=== PATIENT | female | born 1955 | race Caucasian/White ===

== ENCOUNTER → 2019-05-25 12:41 | Outpatient (CLI) | payer OTHER, SELFPAY ==
--- NOTE | 2019-05-25 12:46 | STEWCON_ITS ---
Reason For Study: CHEST PAIN Stress Results Protocol: Kenneth Protocol WITH DEFINITY Maximum Predicted HR: 158 bpm Target HR: 134 bpm % Maximum Predicted HR: 89 % DurationHeart Rate Stage (mm:ss) (bpm) BP Comment BASELINE 78 148/886 CC DEFINITY STAGE 1 3:00 127 200/88 STAGE 2 1:31 141 / RECOVERY 100 150/70 Stress Duration: 4:31 mm:ss Maximum Stress HR: 141 bpm Baseline Echocardiogram Findings Stress Echo Wall motion Data Resting WM Intermediate WM Stress WM Interpretation Summary Exercise stress echo. 63-year-old lady with a history of hypertension and chest discomfort. Stress protocol: Resting EKG demonstrates normal sinus rhythm with a rate of 82 bpm normal intervals are noted resting blood pressures 148/88 mmHg. The patient exercised according to regular Kenneth protocol for a total duration of 4 minutes and 30 seconds. The maximum heart rate attained was 141 bpm which was 89% of maximum predicted heart rate the maximum workload was 7 metabolic equivalents. The patient maintained sinus rhythm throughout the recording. At rest no EKG changes were noted suggest ischemia at peak exercise upsloping ST changes only were noted with no meet the criteria for ischemia. No clinical angina was noted the test was terminated due to dyspnea and target heart rate being achieved. Stress echocardiographic protocol. Resting echocardiographic images were obtained with Definity enhancement. The baseline ejection fraction was noted to be approximately 60%. No wall motion abnormalities were noted. During exercise there was thickening of the basal anterior wall, basal inferior wall and no thickening noted of the mid to distal anterior wall, the apex was noted to be akinetic and the inferoapical wall was hypokinetic. This appeared to improve after discontinuation of the exercise. The above is suggestive of stress-induced ischemia involving a moderate area in the mid to distal anterior wall and apex and inferoapical wall. Conclusion: Abnormal exercise stress echo with evidence of anterior, anterior apical and inferoapical ischemia. Normal resting baseline echo Ordering Physician: Jaxon Rojo Referring Physician: Jaxon Rojo Performed By: Tamiko Ariza, LORRAINE, RVT
== END ==
PROVIDERS: Family Provider Family Medicine; PCP Family Medicine; Referring Provider Family Medicine; Visit Provider Family Medicine
DX: R07.9 Chest pain, unspecified (principal)
CPT/HCPCS: 93017; 93350; Q9957; A4216; C8928

== ENCOUNTER 2019-06-04 06:55 | Day surgery (SDC) | payer OTHER, SELFPAY ==
[2019-05-30 12:19] VITALS: BMI 38.7
--- NOTE | 2019-05-30 15:11 | RAD_ITS ---
STUDY: X-RAY CHEST REASON FOR EXAM: Female, 63 years old. pre heart cath TECHNIQUE: 2 views COMPARISON: Prior chest radiograph of December 20, 2014 FINDINGS: The lungs are clear and expanded. There is no demonstrated pleural abnormality. Normal size heart. Normal mediastinum and alie. Normal visualized pulmonary arteries. Mild elongation of the thoracic aorta. There are diffuse degenerative changes of the visualized thoracic spine with increased kyphosis. Normal visualized ribs, clavicles, and shoulders. There is no demonstrated abnormality of the visualized soft tissue structures of the upper abdomen. RAD/Chest PA and Lateral IMPRESSION: No acute cardiopulmonary findings or changes. Negative for new consolidation, focal atelectasis or pleural effusion. Normal cardiac size. Mild elongation of the thoracic aorta. Electronically Signed: Maxine Dickey MD at 23:32 EST , Service support ,
[2019-05-31 09:28] LABS: Basophil% 1.2 % (0-1); Eosinophils% 1.9 % (0-5); Hematocrit 49.8 % (37-47); Hemoglobin 16.4 g/dL (12.0-15.0); Lymphocyte % 28.7 % (19-41); Mean Corp Hgb Conc 32.9 g/dL (32-36); Mean Corpuscular Hgb 29.9 pg (27.0-32.0); Mean Corpuscular Volume 90.7 fL (81-99); Mean Platelet Vol. 10.7 fl (6.2-12.0); Monocyte% 7.9 % (0-10); Neutrophil # 5.43 X10^3/uL (2.7-7.7); Neutrophil % 59.9 % (47-70); Platelet Count 281 K/mm3 (150-450); RBC Distribution Width CV 13.3 % (11.6-14.6); RBC Distribution Width SD 45.1 fl (35.1-43.9); Red Blood Count 5.49 M/mm3 (4.2-5.4); White Blood Count 9.1 K/mm3 (4.4-11.0)
[2019-05-31 09:29] LABS: Absolute Neutrophil Count 5.4 X10^3/uL (2.0-7.7); Basophil# 0.11 X10^3/uL; Eosinophil# 0.17 X10^3/uL; Glucose 93 mg/dL (74-106); Monocyte# 0.72 X10^3/uL; NRBC Flagged by Analyzer 0 % (0-5)
[2019-05-31 09:30] LABS: Anion Gap 6 (5-15); BUN 32 mg/dL (7-18); BUN/Creat Ratio 24.1 RATIO (10-20); Calcium,Total 9.9 mg/dL (8.5-10.1); Chloride 106 mmol/L (98-107); Creatinine, Serum 1.33 mg/dL (0.55-1.02); EST Glomerular Filtration Rate 43 mL/min (>60); Est Glom Filt Rate - Afr Amer 52 mL/min (>60); Potassium 4.1 mmol/L (3.5-5.1); Sodium Level 138 mmol/L (136-145)
[2019-06-01 07:38] VITALS: BMI 38.7
--- NOTE | 2019-06-04 09:41 | CL.D_ITS ---
Patient Name: MARIBELL LEE Study Date: 06/04/2019 Performing: Azar Albright MD Ht: 63.38 inches 161 cm : 1955 Wt: 222.67 lbs 101 kg Age: 63 Gender: female BSA: 2.03 PROCEDURE(S) PERFORMED [id number] CLINICAL PROFILE AND INDICATIONS Indications: Worsening Angina Heart Failure: None Stress/Imaging Stress Echocardiogram: Yes Result: Positive High RiskStress Echocardiogram: Positi ve High Risk CAD Presentations: Unstable angina. CONCLUSIONS Severe coronary artery disease involving ostial left main and proximal LAD stenosis with ventriculari zation of pressures on engagement, minimal left circumflex artery disease, moderately severe right co ronary artery stenosis with proximal 70 to 80% stenosis and preserved ejection fraction RECOMMENDATIONS Surgery consult for coronary revascularization DESCRIPTION OF PROCEDURE The patient arrived to the procedure lab. The risks and benefits of the procedure as well as a full d escription of our services here and current unavailability of surgical backup were fully explained to the patient and/or their significant other prior to the catheterization. The Timeout was completed, verifying the correct patient and procedure. The patient's procedural site was prepped and draped in the usual fashion. Local anesthetic was given subcutaneously to right radial region with Lidocaine 2% . Using a modified Seldinger technique, arterial access was obtained via the right radial artery, a 6 Fr sheath was inserted. Right Coronary Artery selective angiography was then performed in multiple v iews using a 5 Fr. 4.0 Cascilla catheter. Left Coronary Artery selective angiography was performed in mu ltiple views using a 5 Fr. JL3.5 catheter. Left Ventriculography was performed in ALANIZ projection usin g a 5 Fr. Pigtail catheter. LV to AO pullback pressures were then recorded.The arterial sheath was pulled and a TR Band was applied for hemostasis, 10cc of air CORONARY ANGIOGRAPHY DOMINANCE: Right Dominant LEFT HEART ASSESSMENT Left Ventricular Ejection Fraction: by LV Gram 60 % Normal LV wall motion Normal Left Ventricular systolic function LEFT MAIN: Ostial 90 % Stenosis LEFT ANTERIOR DESCENDING ARTERY: OSTIAL LAD: 90 % Stenosis CIRCUMFLEX ARTERY: No significant disease noted RIGHT CORONARY ARTERY: PROX RCA: Diffusely diseased up to 80 % COMPLICATIONS No Complications PROCEDURE MEDICATIONS Fentanyl 50 mcg IV Versed 1 mg IV Versed 1 mg IV Versed 1 mg IV Oxygen: 2 L/min via nasal cannula Heparin diluted in 23cc Heparinized saline. Patient given 10cc IA of this solution. 06/04/2019 09:10:1 5 Verapamil 2.5mg, Ntg 100mcgs, 2000 units of Heparin diluted in 23cc Heparinized saline. Patient give n 10cc IA of this solution. 06/04/2019 09:10:15 SUMMARY OF HEMODYNAMIC DATA Time AIR REST ECG 07:24:26 AO 120/70 (89) SA 09:10:08 LV 108/8, 11 09:20:39 LV 130/9, 16 09:20:45 LV 112/11, 24 09:21:25 LVp 120/22, 40 09:21:34 AOp 118/64 (87) 09:21:39 Signed By Azar Albright MD On 06/04/2019 09:40:57 Azar Albright MD
== END 2019-06-04 12:21 | disposition short-term general hospital (02) ==
LOC: CLSP 06:56
PROVIDERS: PCP Family Medicine; Referring Provider Internal Medicine Cardiovascular Disease; Visit Provider Internal Medicine Cardiovascular Disease
DX: I25.10 Atherosclerotic heart disease of native coronary artery without angina pectoris (principal); I65.23 Occlusion and stenosis of bilateral carotid arteries; R07.89 Other chest pain; I10 Essential (primary) hypertension; E78.5 Hyperlipidemia, unspecified; J44.9 Chronic obstructive pulmonary disease, unspecified; Z86.718 Personal history of other venous thrombosis and embolism; F17.200 Nicotine dependence, unspecified, uncomplicated
CPT/HCPCS: 36415; 71046; 80048; 85025; 93458; 99152; 99153; Q9967; C1769; C1894

== ENCOUNTER 2019-06-15 19:20 | Inpatient (IN) | payer OTHER, SELFPAY ==
[2019-06-01 07:38] VITALS: BMI 38.7
[2019-06-15 19:24] VITALS: BMI 39.0
[2019-06-15 20:27] VITALS: BMI 39.0
--- NOTE | 2019-06-15 22:28 | EKG12_ITS ---
Test Reason : CABG Blood Pressure : / mmHG Vent. Rate : 076 BPM Atrial Rate : 076 BPM P-R Int : 134 ms QRS Dur : 094 ms QT Int : 374 ms P-R-T Axes : 054 028 146 degrees QTc Int : 420 ms Normal sinus rhythm Nonspecific ST and T wave abnormality Abnormal ECG When compared with ECG of 24-JAN-2014 10:54, Nonspecific T wave abnormality, worse in Inferior leads T wave inversion now evident in Lateral leads Confirmed by MAGO POWER ([id number]), magazine editor OLGA NEWMAN ([id number]) on 06/21/2019 10:00:04 AM Referred By: MAXIMILIANO Confirmed By:MAGO POWER
[2019-06-15 22:49] VITALS: BP 164/77; PULSE 76; RESP 18; TEMP 36.7; O2SAT 92
[2019-06-15] MEDS: traZODone 100 MG Tablet PO (23:04)
[2019-06-15] MEDS: Senna/Docusate Sodium 1 Tablet PO (23:05)
[2019-06-15] MEDS: traMADol 50 MG Tablet PO (23:05)
[2019-06-15] MEDS: Acetaminophen 500 MG Tablet 1000 MG PO (23:05)
[2019-06-15] MEDS: Atorvastatin Calcium 40 MG Tablet PO (23:06)
[2019-06-16] VITALS (7 sets, daily range): BP systolic 146–152; BP diastolic 75–76; PULSE 74–80; RESP 18–20; TEMP 36.6–37.1; O2SAT 94–95
[2019-06-16] MEDS: Acetaminophen 500 MG Tablet 1000 MG PO ×3 (05:54→17:11)
[2019-06-16] MEDS: Ipratropium/Albuterol Sulfate 3 ML AMPUL.NEB INHALATION ×3 (06:45→20:08)
[2019-06-16] MEDS: Furosemide 20 MG Tablet PO (07:43)
[2019-06-16] MEDS: traMADol 50 MG Tablet PO ×3 (07:43→22:14)
[2019-06-16] MEDS: Lidocaine 5% Patch 1 PATCH TOPICAL (07:43)
[2019-06-16] MEDS: Senna/Docusate Sodium 1 Tablet PO ×2 (07:44→21:16)
[2019-06-16] MEDS: Magnesium Oxide 400 MG Tablet PO (07:44)
[2019-06-16] MEDS: Escitalopram Oxalate 10 MG Tablet PO (07:44)
[2019-06-16] MEDS: Clopidogrel Bisulfate 75 MG Tablet PO (07:44)
[2019-06-16] MEDS: Amiodarone 200 MG Tablet 400 MG PO (07:44)
[2019-06-16] MEDS: Pantoprazole Sodium 40 MG Tablet PO (07:44)
[2019-06-16] MEDS: Aspirin 81 MG TAB.CHEW PO (07:44)
[2019-06-16 08:02] LABS: Absolute Lymphocyte Count 1.98 X10^3/uL (0.83-4.51); Absolute Neutrophil Count 6.4 X10^3/uL (2.0-7.7); Basophil# 0.08 X10^3/uL; Basophil% 0.8 % (0-1); Eosinophil# 0.69 X10^3/uL; Eosinophils% 6.9 % (0-5); Hematocrit 33.3 % (37-47); Hemoglobin 10.4 g/dL (12.0-15.0); Lymphocyte # 1.98 X10^3/ul (4.0); Lymphocyte % 19.7 % (19-41); Mean Corp Hgb Conc 31.2 g/dL (32-36); Mean Corpuscular Hgb 29.7 pg (27.0-32.0); Mean Corpuscular Volume 95.1 fL (81-99); Monocyte# 0.87 X10^3/uL; Monocyte% 8.7 % (0-10); NRBC Flagged by Analyzer 0 % (0-5); Neutrophil # 6.35 X10^3/uL (2.7-7.7); Neutrophil % 63.3 % (47-70); Platelet Count 371 K/mm3 (150-450); RBC Distribution Width SD 48.1 fl (35.1-43.9)
[2019-06-16 08:27] LABS: ALB/GLOB Ratio 0.6 RATIO (0.9-2.4); AST(SGOT) 19 U/L (15-37); Alanine Aminotransfer ALT/SGPT 24 U/L (13-56); Albumin, Serum 2.7 g/dL (3.2-5.0); Alkaline Phosphatase 67 U/L (45-117); Anion Gap 5 (5-15); BUN 16 mg/dL (7-18); BUN/Creat Ratio 15.2 RATIO (10-20); Calcium,Total 9.4 mg/dL (8.5-10.1); Chloride 104 mmol/L (98-107); Creatinine, Serum 1.05 mg/dL (0.55-1.02); EST Glomerular Filtration Rate 56 mL/min (>60); Est Glom Filt Rate - Afr Amer 68 mL/min (>60); Estimated Creatinine Clearance 45.95 ml/min; Globulin 4.4 g/dL (2.2-4.2); Glucose 95 mg/dL (74-106); Magnesium 2.2 mg/dL (1.6-2.6); Potassium 4.2 mmol/L (3.5-5.1); Protein, Total 7.1 g/dL (6.4-8.2); Sodium Level 138 mmol/L (136-145)
[2019-06-16] MEDS: Metoprolol Tartrate 50 MG Tablet PO (09:31)
--- NOTE | 2019-06-16 14:12 | PCM.HP.STD ---
Problem List (1) S/P CABG (coronary artery bypass graft) Status: Acute Comment: 06/08/[address] Riley ar [facility]. MARTINEZ -LAD and SVG-RCA (2) History of left-sided carotid endarterectomy Status: Chronic Comment: 2013 (3) Obesity (BMI 30-39.9) Status: Chronic (4) Chest pain Status: Acute Qualifiers: Chest pain type: precordial pain Qualified Code(s): R07.2 - Precordial pain Comment: with coughing (5) Atherosclerosis of coronary artery of knik heart without angina pectoris Status: Chronic Qualifiers: Coronary Disease-Associated Artery/Lesion type: knik artery Qualified Code(s): I25.10 - Atherosclerotic heart disease of knik coronary artery without angina pectoris (6) Bilateral carotid artery stenosis Status: Chronic Comment: Left CEA 08/27/2013 (7) Essential (primary) hypertension Status: Chronic (8) Hyperlipidemia Status: Chronic (9) Nicotine dependence Status: Chronic Qualifiers: Nicotine product type: cigarettes Comment: 1 or > daily for 40-45 years (10) BPPV (benign paroxysmal positional vertigo) Status: Chronic (11) Diverticulosis Status: Chronic (12) Migraine headache with aura Status: Chronic (13) History of meningioma Status: Resolved Comment: resected in 2000 (14) DVT (deep venous thrombosis) Status: Resolved Qualifiers: DVT location: lower extremity Comment: 2012 (15) CVA (cerebral vascular accident) Status: Acute Qualifiers: CVA mechanism: embolism Comment: BL thalami and left temporal-occipital with small hemorhagic transformation L thamlamus - jo-ann-operative following CABG. Cardioembolic (16) Cardiac arrest with ventricular fibrillation Status: Acute Comment: X3 immediately after CABG with defibrillation X 2 (17) Ventricular tachycardia (paroxysmal) Status: Acute (18) COPD (chronic obstructive pulmonary disease) Status: Chronic (19) Anxiety and depression Status: Acute History of Present Illness Date of Admission: 06/15/19 The patient is a 63 year old F with a past medical history of hypertension, hyperlipidemia, COPD, CAD with two-vessel CABG on 06/08/2019, carotid stenosis bilaterally with left carotid endarterectomy in 2013, obesity, anxiety/depression, benign paroxysmal positional vertigo, diverticulosis, migraine headaches, meningioma with resection in 2000, DVT in 2012, ventricular tachycardia, V. fib arrest x3 postoperatively with defibrillation x2 and post-operative CVAs (bilateral thalamus and left temporal/occipital with small hemorrhagic transformation in the left thalamus thought to be cardioembolic who is admitted to the inpatient rehab unit on for debility due to recent CVS's for > 3 hours of therapy daily to restore function at or near her prior level of independence. Prior to recent surgery she was managing her ADL's independently and was driving. She currently denies Chest pain other than the anterior chest stabbing she has when coughing or moving. She denies SOB and she denies palpitations. She has no cephalgia. All paperwork we received from [facility] was reviewed. Past Medical History Past Medical History (Chronic Problems): Chronic Problems (Last Updated 06/04/19 @ 11:15 by Kate Interiano) History of left-sided carotid endarterectomy (Chronic) 2013 Obesity (BMI 30-39.9) (Chronic) BPPV (benign paroxysmal positional vertigo) (Chronic) Diverticulosis (Chronic) Migraine headache with aura (Chronic) COPD (chronic obstructive pulmonary disease) (Chronic) Atherosclerosis of coronary artery of knik heart without angina pectoris (Chronic) Bilateral carotid artery stenosis (Chronic) Left CEA 08/27/2013 Essential (primary) hypertension (Chronic) Hyperlipidemia (Chronic) Nicotine dependence (Chronic) 1 or > daily for 40-45 years Medical History: Medical History (Last Reviewed 06/17/19 @ 13:22 by Irene Ferraro DO) Atherosclerosis of coronary artery of knik heart without angina pectoris (Chronic) I25.10 Bilateral carotid artery stenosis (Chronic) I65.23 Left CEA 08/27/2013 Essential (primary) hypertension (Chronic) I10 Hyperlipidemia (Chronic) E78.5 Nicotine dependence (Chronic) F17.200 1 or > daily for 40-45 years BPPV (benign paroxysmal positional vertigo) H81.10 COPD (chronic obstructive pulmonary disease) J44.9 History of DVT (deep vein thrombosis) Onset Date: 01/2013 Z86.718 LLE Obesity E66.9 Meningioma determined by biopsy of brain D32.0 Allergies No Known Allergies Allergy (Verified 05/30/19 12:19) Home Medications: Ambulatory Orders Medication Instructions Recorded Aspirin E.C. [Ecotrin] 81 mg PO DAILY@0800 08/09/13 Escitalopram Oxalate [Lexapro] 10 mg PO DAILY 08/09/13 Omeprazole [Prilosec] 20 mg PO DAILY PRN PRN 08/09/13 Simvastatin [Zocor] 40 mg PO DAILY 08/09/13 traZODone [Desyrel] 100 mg PO QHS PRN PRN 08/09/13 lisinopril 20 1 tab PO DAILY tab 05/29/19 mg-hydrochlorothiazide 25 mg tablet metoprolol succinate 50 mg 50 mg PO DAILY #90 tab 05/30/19 tablet,extended release 24 hr Surgical History: Surgical History (Last Reviewed 06/17/19 @ 13:23 by Irene Ferraro DO) History of bone graft Z98.890 to left foot History of cholecystectomy Z90.49 History of laminectomy Z98.890 History of left heart catheterization Onset Date: 06/04/19 Z98.89 History of left-sided carotid endarterectomy Onset Date: 08/27/13 Z98.89 Left carotid endarterectomy with bovine patch angioplasty. History of repair of rotator cuff Z98.890 History of resection of meningioma Onset Date: 2000 Z Psychiatric History: Anxiety, Depression [employer] History: No pertinent [employer] history Lives: With Family - her dtr Ba Smoking Status: Current every day smoker - Has not smoked in 2 weeks since being transferred to [facility]. Has been smoking for 40-45 years and up until the surgery was smoking greater than or equal to 1 pack/day Tobacco Use: Cigarettes Alcohol: Occasional Drugs: None - *Family History Maternal Family History: Family History (Last Reviewed 06/17/19 @ 13:23 by Irene Ferraro DO) Mother Clotting disorder CAD (coronary artery disease) Hypertension Pulmonary embolism Father Hypertension Diabetes History Items: Clotting Disorder Review of Systems Constitutional: Reports: Weakness. Denies: Anorexia, Chills, Fever, Weight Change Eyes: Reports: Vision Change - visual changes with funny vision with vertical gaze after the CVA's. Denies: Blurred vision HEENT: Denies: Head Aches, Sinus Congestion, Sinus Drainage, Sore Throat Cardiovascular: Reports: Chest Pain - this is stabbing pain and she gets this with coughing and with twisting/rolling over in bed. Denies: Light Headedness, Palpitations, Syncope Respiratory: Reports: Cough, Shortness of breath upon exertion, Sputum production - white/clear. Denies: Hemoptysis, Shortness of breath at rest Gastrointestinal: Denies: Abdominal Pain, Constipation, Diarrhea, Dyspepsia, Nausea, Vomiting Genitourinary: Denies: Dysuria Musculoskeletal: Reports: Shoulder Pain - she has left shoulder pain from an old rotator cuff injury. Denies: Joint Pain, Joint Tenderness Skin: Denies: Jaundice, Rash, Wounds Neurological: Reports: Balance problems - she walks to the left. Denies: Double vision, Slurred speech, Confusion, Focal weakness, Numbness, Tingling, Tremor, Seizures Psychiatric: Reports: Anxiety, Depression. Denies: Homicidal Ideations, Suicidal Ideations Endocrine: Denies: Change in Body Habitus Hematologic/ Lymphatic: Reports: Hx of blood clot - in 2013 - unprovoked. Denies: Easy Bruising, Easy Bleeding VTE Information - Inpt Only VTE Present on Admission: No VTE Mechan Device Prophylaxis: SCD's, Knee High AWA Hose VTE Pharm Prophylaxis ordered?: No Reason prophylaxis not ordered:: Treatment Not Indicated - pt had hemorrhagic transformation of recent CVA Patient Problems: Active and Suspected Problems (Last Updated 06/04/19 @ 11:15 by Kate Interiano) S/P CABG (coronary artery bypass graft) (Acute) 06/08/[address] X [address] Riley ar [facility]AG. MARTINEZ -LAD and SVG-RCA CVA (cerebral vascular accident) (Acute) BL thalami and left temporal-occipital with small hemorhagic transformation L thamlamus - jo-ann-operative following CABG. Cardioembolic Cardiac arrest with ventricular fibrillation (Acute) X3 immediately after CABG with defibrillation X 2 Ventricular tachycardia (paroxysmal) (Acute) Anxiety and depression (Acute) - Physical Exam Vitals/I&O's: Vital Signs Temp Pulse Resp BP Pulse Ox 97.9 F 80 18 152/75 H 94 06/16/19 07:39 06/16/19 12:59 06/16/19 12:59 06/16/19 09:31 06/16/19 07:39 Oxygen Delivery Method Room Air Weight: 220 lb 7.396 oz Body Mass Index (BMI) 39.0 Intake and Output for Last 24 Hours 06/14/19 06/15/19 06/16/19 23:59 23:59 23:59 Intake Total 600 / 600 Output Total 300 / 300 Balance 300 / 300 General: Alert, Oriented x3, Cooperative, No apparent distress, Well developed, Well nourished, - - lying in bed......grimaces with rolling on her side and with coughing. Looks older than her stated age HEENT: Atraumatic, PERRLA, EOMI, Normocephalic Oral: Moist Mucosa, No Gingival or Mucosal Lesions/ Ulcerations Neck: Supple, No JVD, Negative Carotid Bruits, No Nodes, Trachea Midline Lungs: Clear to auscultation, No rhonchi, No wheeze, No rales, Diminished - throughout Cardiovascular: Regular rate, Regular Rhythm, Normal S1, Normal S2, No murmurs, No Ectopic Activity, No rub noted, No Gallop Abdomen: Bowel Sounds Present, Soft, Non Tender, Non-Distended, Obese, - - No guarding with palpation Extremities: No clubbing, No cyanosis, No edema, Capillary Refill Less than 3 Seconds Skin: No rashes, No breakdown, - - The incision is intact with no periwound erythema and no DC. All the puncture sites where drains were previously located are healing with no evidence of infection Musculoskeletal: No Tenderness to Palpation of Joints or Extremities, No Muscle Wasting Neurological: Cranial nerves II-XII grossly intact, Neuro grossly intact Psych/Mental Status: Normal Affect, Appropriate Laboratory Results 06/16/19 07:04: WBC 10.0, RBC 3.50 L, Hgb 10.4 L, Hct 33.3 L, MCV 95.1, MCH 29.7, MCHC 31.2 L, RDW Std Deviation 48.1 H, RDW Coeff of Melissa 14.0, Plt Count 371, MPV 10.0, Immature Gran % (Auto) 0.600, Neut % (Auto) 63.3, Lymph % (Auto) 19.7, [place] % (Auto) 8.7, Eos % (Auto) 6.9 H, Baso % (Auto) 0.8, Absolute Neuts (auto) 6.4, Absolute Lymphs (auto) 1.98, Nucleated RBC % 0 06/16/19 07:04: Sodium 138, Potassium 4.2, Chloride 104, Carbon Dioxide 29.0, Anion Gap 5, BUN 16, Creatinine 1.05 H, Estim Creat Clear Calc 45.95, Est GFR (MDRD) Af Amer 68, Est GFR (MDRD) Non-Af 56 L, BUN/Creatinine Ratio 15.2, Glucose 95, Calcium 9.4, Magnesium 2.2, Total Bilirubin 0.40, AST 19, ALT 24, Alkaline Phosphatase 67, Total Protein 7.1, Albumin 2.7 L, Globulin 4.4 H, Albumin/Globulin Ratio 0.6 L Current Medications Acetaminophen (Tylenol) 1,000 mg PO Q6 [facility] Last Admin: 06/16/19 12:32 Dose: 1,000 mg Documented by: Albuterol Sulfate (Ventolin Hfa (Sp)) 2 puff INHALATION Q6H PRN PRN Albuterol/Ipratropium (Duoneb) 3 ml INHALATION TID [facility] Last Admin: 06/16/19 12:59 Dose: 3 ml Documented by: Amiodarone HCl (Cordarone) 400 mg PO DAILY [facility] Last Admin: 06/16/19 07:44 Dose: 400 mg Documented by: Aspirin (Aspirin, Baby) 81 mg PO DAILY@0800 [facility] Last Admin: 06/16/19 07:44 Dose: 81 mg Documented by: Atorvastatin Calcium (Lipitor) 40 mg PO QHS [facility] Last Admin: 06/15/19 23:06 Dose: 40 mg Documented by: Bisacodyl (Dulcolax) 10 mg RECTAL .PRN X 1 PRN PRN Reason: Constipation Clopidogrel Bisulfate (Plavix) 75 mg PO DAILY [facility] Last Admin: 06/16/19 07:44 Dose: 75 mg Documented by: Escitalopram Oxalate (Lexapro) 10 mg PO DAILY [facility] Last Admin: 06/16/19 07:44 Dose: 10 mg Documented by: Furosemide (Lasix) 20 mg PO DAILY [facility] Last Admin: 06/16/19 07:43 Dose: 20 mg Documented by: Lidocaine (Lidoderm Patch) 1 patch TOPICAL DAILY [facility]; Protocol Last Admin: 06/16/19 07:43 Dose: 1 patch Documented by: Magnesium Hydroxide (Milk Of Magnesia) 30 ml PO .PRN X 1 PRN PRN Reason: Constipation Magnesium Oxide (Mag-Ox 400) 400 mg PO DAILYCM [facility] Last Admin: 06/16/19 07:44 Dose: 400 mg Documented by: Metoprolol Tartrate (Lopressor (Beta Florentino)) 50 mg PO DAILY [facility] Last Admin: 02/15/20 09:31 Dose: 50 mg Documented by: Nutritional Formula (Lactose Free) (Ensure Enlive) 120 ml PO 4X/DAY [facility] Last Admin: 06/16/19 14:05 Dose: Not Given Documented by: Pantoprazole Sodium (Protonix) 40 mg PO DAILY [facility] Last Admin: 06/16/19 07:44 Dose: 40 mg Documented by: Polyethylene Glycol (Miralax) 17 gm PO DAILY [facility] Last Admin: 06/16/19 09:25 Dose: Not Given Documented by: Potassium Chloride (K-Dur) 20 meq PO DAILYCM [facility] Last Admin: 06/16/19 07:44 Dose: 20 meq Documented by: Senna/Docusate Sodium (Senokot-S, Jo-Ann-Colace) 1 tablet PO BID [facility] Last Admin: 06/16/19 07:44 Dose: 1 tablet Documented by: Tramadol HCl (Ultram) 50 mg PO Q6H PRN PRN PRN Reason: Pain Score 1-10/10 Last Admin: 06/16/19 07:43 Dose: 50 mg Documented by: Trazodone HCl (Desyrel) 100 mg PO QHS PRN PRN PRN Reason: INSOMNIA Last Admin: 06/15/19 23:04 Dose: 100 mg Documented by: Assessment/Plan All Active Problems (Last Updated 06/04/19 @ 11:15 by Kate Interiano) S/P CABG (coronary artery bypass graft) (Acute) CVA (cerebral vascular accident) (Acute) Cardiac arrest with ventricular fibrillation (Acute) Ventricular tachycardia (paroxysmal) (Acute) Anxiety and depression (Acute) Chest pain (Acute) DVT (deep venous thrombosis) (Resolved) History of meningioma (Resolved) Impressions 1. Debility due to recent BL thalami and Left temporal occipital cardioembolic CVAs with hemorrhagic transformation of small left thalamus infarct 2. Debility secondary to recent two-vessel CABG on 06/08/2019 at [facility] 3. Chronic medical conditions include: HTN, HLD, COPD, obesity, carotid artery stenosis with history of left CEA, ongoing nicotine dependence, benign paroxysmal positional vertigo, diverticulosis, COPD, suspected MADELINE, migraine headaches, history of meningioma status post resection in 2000, history of an unprovoked DVT in 2012 in the lower extremity, postoperative V. fib arrest x3, ventricular tachycardia, anxiety/depression. These conditions complicate care/management and prognosis. Smoking cessation counselling was given. Pt does not want to talk about smoking. She has quit in the past for short times but, she goes back to smoking when she is stressed. Better management of stress may help her to be more successful in her endeavors to quit smoking. We will visit this in a day or two when she may be more wiling to talk about smoking cessation. Smoking cessation consult has been ordered. PLAN PT for gait stability OT for ADL's ST for evaluation Analgesics as needed Bowel protocol Fall precautions Assess for Anxiety/Depression GI prophylaxis with pantoprazole DVT prophylaxis with SCDs and AWA richmonde. No pharmacologic DVT prophylaxis at this time due to recent hemorrhagic transformation of left thalamic ischemic CVA. Follow up with Dr. Azar Albright in 6 to [address] Luann Enriquez from neurology in 4 to 6 weeks at [facility] Revisit smoking cessation with her in a few days and also discuss the adequacy of her regimen for anxiety and depression. Code Visit Inpatient E&M: 28834 Init Hosp L3
--- NOTE | 2019-06-16 20:55 | REHABEVAL_ITS ---
Admission Information Primary Diagnosis:: debility due to CVA's Status Changes from Prescreening?: No changes Identified Actual Problem List:: Pain, ALteration in Cmfrt, Cognitve Impr/Memory Loss, Alteration in Sleep, Mobility Impaired, Self Care Deficit, BP, Hypertension Potential Problem List:: DVT, Bleeding, Infection, UTI, Aspiration, Falls, Skin Integrity, Depression Risk of Complications DVT: LMWH, AWA Hose, Sequential Compression Device Bleeding: Monitor Lab Values, Nursing to Teach Precautions for anti-coagulation therapy., Wound, if applicable, to be assessed every shift., Stroke patients as sessed for lethargy or change in status. Infection: Clinical Staff to Monitor for S/S of infection:, S/S of infection include fever, redness, warmth, etc. Urinary Tract Infection: Monitor for frequency, burning, discomfort, or incontinence., Nursing will obtain urine sample for urinalysis and C&S when ordered. Aspiration: Clinical staff will monitor for coughing, drooling, congestion., Speech will evaluate swallowing and dsyphasia., Nursing will monitor patient swallowing during meals. Falls: Patient will be evaluated for Fall Precautions, Patient will be placed on Fall Precautions as indicated per protocol. Skin Breakdown: Nursing will assess skin daily using assessment tool., Nursing will place on Skin Breakdown Precautions as indicated. Pain: Clinical staff will assess patient's pain level per protocol., Medications will be given, if needed, and the pain level reassessed., Other methods: Massage, distraction, decrease stimulus, etc. used PRN. Plan of Care Patient requires physician specializing in physical medicine and rehab oversight to provide close medical supervision of rehab issues including: Pain Management, Sleep Problems, Bowel and Bladder, Medical and co-morbidity Management, DVT prophylaxis, Rehabilitation Leadership, Coordination of treatment team Patient needs Physical Therapy: For a minimum of 1 hour, At least 5 out of 7 days Patient needs Physical Therapy to improve:: Mobility, Mobility, Mobility, Strengthening, Transfers, Stretching, ROM, Endurance, Stairs, Gait, Balance Patient needs Occupational Therapy: For a minimum of 1 hour, At least 5 out of 7 days Patient needs Occupational Therapy to improve ADL's incl.: Eating, Grooming, Bathing, Dressing, Toileting, Toilet transfers, Community Reintegration, Higher functioning activities, Household tasks, Adaptive Equipment, Splinting, Other activities as determined Patient requires speech therapy for: Cognition Patient requires 24/7 Rehabilitation Nursing for: Pain Issues, Identifying and preventing risk factors, Monitoring and reporting current medical conditions, Assisting with ambulation, transfer, and all ADL's, Teaching patients about disease process and medications, Family teaching, Providing safe environment, Bowel and Bladder Issues, Skin integrity, Medication Management Patient needs Attraction Attendant/ Case Management for: Discharge Planning, Arranging Home Equipment or Services, Family Interventions Patient needs Dietary and Nutrition Services for: Adequate Nutrition, Nutritional Supplements, Nutritional Education Goals Patient will remain: free from falls, or injury at time of discharge. Patient will perform bed mobility at: MOD I level of assist. Patient will complete transfers from bed to chair at: MOD I level of assist. Patient will ambulate: 100 feet, with MOD I assist, with LRD Patient will complete upper body dressing at: MOD I level of assist. Patient will complete lower body dressing at: MOD I level of assist. Patient will complete toileting at: MOD I level of assist. Patient will perform bathing at: MOD I level of assist. Patient will complete grooming at: MOD I level of assist. Patient will complete home management skills at: MOD I level of assist. Patient will achieve: 12 stairs, at MOD I assist Patient will have pain level of: of 3 or less Patient's skin will: remain intact, free from infection. Patient will receive: adequate nutrition. Discharge Planning Pt Prognosis for Sig. Practical Improv. w/in Reasonable Time: Good Estimated Length of stay (days): 10 Anticipated D/C Destination: Home with Outpt Therapy
[2019-06-16] MEDS: Atorvastatin Calcium 40 MG Tablet PO (21:16)
[2019-06-16] MEDS: traZODone 100 MG Tablet PO (21:16)
[2019-06-17] MEDS: Acetaminophen 500 MG Tablet 1000 MG PO ×3 (05:21→16:46)
[2019-06-17 06:40] VITALS: PULSE 78; RESP 18; O2SAT 94
[2019-06-17] MEDS: Ipratropium/Albuterol Sulfate 3 ML AMPUL.NEB INHALATION ×3 (06:40→20:01)
[2019-06-17 07:52] VITALS: BP 151/80; PULSE 88; RESP 18; TEMP 36.3; O2SAT 93
[2019-06-17] MEDS: Lidocaine 5% Patch 1 PATCH TOPICAL (09:06)
[2019-06-17 09:07] VITALS: BP 151/80; PULSE 88
[2019-06-17] MEDS: Aspirin 81 MG TAB.CHEW PO (09:07)
[2019-06-17] MEDS: Metoprolol Tartrate 50 MG Tablet PO (09:07)
[2019-06-17] MEDS: Escitalopram Oxalate 10 MG Tablet PO (09:07)
[2019-06-17] MEDS: Magnesium Oxide 400 MG Tablet PO (09:07)
[2019-06-17] MEDS: Furosemide 20 MG Tablet PO (09:07)
[2019-06-17] MEDS: Clopidogrel Bisulfate 75 MG Tablet PO (09:07)
[2019-06-17] MEDS: Amiodarone 200 MG Tablet 400 MG PO (09:07)
[2019-06-17] MEDS: Pantoprazole Sodium 40 MG Tablet PO (09:07)
[2019-06-17] MEDS: Senna/Docusate Sodium 1 Tablet PO ×2 (09:07→21:08)
[2019-06-17] MEDS: traMADol 50 MG Tablet PO ×2 (09:54→21:23)
--- NOTE | 2019-06-17 14:01 | PCM.PN.BLA ---
Progress Note Systolic blood pressure is consistently elevated. Diastolic is within normal limits. The heart rate has ranged from 74-88 during her admission. No issues with nursing. All lab was personally reviewed. The hemoglobin is low at 10.4 with normochromic normocytic indices and this is most likely secondary to blood loss related to recent CABG. Platelets are within normal limits and the white blood cell differential was unremarkable. The BMP is remarkable for an elevated BUN at 16 with a creatinine of 1.05 and a BUN/creatinine ratio of 15.2. Creatinine is within her baseline. LFTs are normal. Serum is normal at 2.2. Medication list was reviewed. She was on Metoprolol and Lisinopril/HCTZ 20/ a home prior to surgery.Only on Metoprolol at this time. Goal for the systolic is < 140. Alert, oriented x3, no apparent distress Lungs-diminished but clear to auscultation. Cough is more loose and she seems in less discomfort with coughing Heart-regular rate and rhythm, no gallop Abdomen-soft, nontender, nondistended, bowel sounds heard in all 4 quadrants No significant peripheral edema The incision is intact with no purulent discharge and no paulie-incisional erythema. She has a small amount of serosanguineous drainage from a small skin tear on the right side of the chest. No evidence of infection. She has a vest to help with keeping the incision intact in pt with large breasts. Having double vision at times. Impressions 1. 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 S/P 2 vessel CABG on 06/08/19 at [facility] 3. hx of VF arrest post op and VT. On amiodarone. 4. Tobacco dependence - discussed smoking cessation today. She freely admits that when she is anxious she reaches for a cigarette. We discussed increasing the Lexapro to better control the anxiety and she is open to this. She would like a nicotine patch at [place]. I will also give her the contact number for the smoking cessation coordinator here at the hospital at [place]. 5. HTN - not optimally controlled. Will Add Lisinopril 5 mg. She asked to speak with the back strip machine operator for more education on good food choices Recommended 30 minutes of exercise daily post DC - SW is going to check to see if she has Silver Sneakers with her health insurance. Code Visit Inpatient E&M: 68565 Subs Hosp L2
[2019-06-17 19:24] VITALS: BP 100/73; PULSE 74; RESP 18; TEMP 36.8; O2SAT 94
[2019-06-17 20:00] VITALS: PULSE 76; RESP 18; O2SAT 94
[2019-06-17 21:03] VITALS: BP 121/61; PULSE 76
[2019-06-17] MEDS: Atorvastatin Calcium 40 MG Tablet PO (21:08)
[2019-06-18] MEDS: Acetaminophen 500 MG Tablet 1000 MG PO ×4 (00:07→18:07)
[2019-06-18] MEDS: traZODone 100 MG Tablet PO ×2 (00:07→21:15)
[2019-06-18 06:37] VITALS: PULSE 81; RESP 20; O2SAT 92
[2019-06-18] MEDS: Ipratropium/Albuterol Sulfate 3 ML AMPUL.NEB INHALATION ×3 (06:37→19:30)
[2019-06-18] MEDS: Lidocaine 5% Patch 1 PATCH TOPICAL (08:01)
[2019-06-18] MEDS: Furosemide 20 MG Tablet PO (08:02)
[2019-06-18] MEDS: Escitalopram Oxalate 10 MG Tablet PO (08:02)
[2019-06-18] MEDS: Magnesium Oxide 400 MG Tablet PO (08:02)
[2019-06-18] MEDS: Aspirin 81 MG TAB.CHEW PO (08:02)
[2019-06-18] MEDS: Amiodarone 200 MG Tablet 400 MG PO (08:02)
[2019-06-18 09:01] VITALS: BP 148/70; PULSE 81; RESP 16; TEMP 36.6; O2SAT 94
[2019-06-18 11:17] VITALS: PULSE 78
[2019-06-18] MEDS: Pantoprazole Sodium 40 MG Tablet PO (11:17)
[2019-06-18] MEDS: Clopidogrel Bisulfate 75 MG Tablet PO (11:17)
[2019-06-18] MEDS: Metoprolol Tartrate 50 MG Tablet PO (11:17)
--- NOTE | 2019-06-18 12:53 | CASEMGMT ---
Addendum entered by Michelle Castrejon 06/18/19 15:51: Palliative meeting scheduled with patient 06/19 at 3:30 pm. Original Note: Social Work PHQ-9 completed. Score: 09/25. Pt currently on antianxiety and antidepressant medications that pt reports is effective. However, since admission, increased anxiety. Physician increased medication. Provided stroke support group information. Explained Palliative Medicine d/t qualifying dx and symptoms. Pt agreed for referral. Referral made. Pt does not have advanced directives and is unsure whom to name as HPOA. Provided social service rack card if pt does not decide during stay for SW to assist in completion. Explained insurance, update 06/18 and will continue to follow. Michelle Castrejon, ELIZABETH REVERSING MILL ROLLER
[2019-06-18 13:45] VITALS: PULSE 67; RESP 20
--- NOTE | 2019-06-18 16:08 | CHAPLAIN ---
Type of Pastoral Visit _x__ Initial Visit ___ Follow-up Visit ___ On-call Visit ___ General Patient Visit ___ Spiritual Assessment ___ Family Conference ___ Bereavement ___ Rapid Response ___ Code Blue ___ Other (describe below) Pastoral Care Referral From _x__ Patient ___ Family ___ Nurse ___ Physician ___ Linux Server Administrator ___ Diagram Clerk ___ Other (describe below) Sacrament/Intervention _x__ Active listening ___ Anointing ___ Jainism ___ Bereavement ___ Communion ___ Nilsa exploration ___ _x__ Life review _x__ Prayer ___ Reconciliation ___ Sacrament of Sick ___ Supportive presence ___ Wedding ___ Other (describe below) Pastoral Comments
[2019-06-18 19:30] VITALS: PULSE 70; RESP 18; O2SAT 90
[2019-06-18 19:38] VITALS: BP 123/80; PULSE 72; RESP 18; TEMP 37; O2SAT 97
[2019-06-18 20:50] VITALS: BMI 39.0
[2019-06-18] MEDS: Atorvastatin Calcium 40 MG Tablet PO (20:59)
[2019-06-18] MEDS: traMADol 50 MG Tablet PO (21:10)
[2019-06-19] MEDS: Acetaminophen 500 MG Tablet 1000 MG PO ×3 (06:04→17:01)
--- NOTE | 2019-06-19 06:13 | NURSING ---
Pt refused a.m. ADLs at this time. Pt states she is not an early riser and would prefer getting ready after breakfast.
[2019-06-19 06:23] VITALS: PULSE 74; RESP 20; O2SAT 92
[2019-06-19] MEDS: Ipratropium/Albuterol Sulfate 3 ML AMPUL.NEB INHALATION (06:23)
[2019-06-19 07:07] VITALS: BP 115/65; PULSE 91; RESP 16; TEMP 37.1; O2SAT 91
[2019-06-19] MEDS: Amiodarone 200 MG Tablet 400 MG PO (09:09)
[2019-06-19] MEDS: Furosemide 20 MG Tablet PO (09:09)
[2019-06-19] MEDS: Aspirin 81 MG TAB.CHEW PO (09:09)
[2019-06-19] MEDS: Magnesium Oxide 400 MG Tablet PO (09:09)
[2019-06-19 09:10] VITALS: PULSE 86
[2019-06-19] MEDS: Metoprolol Tartrate 50 MG Tablet PO (09:10)
[2019-06-19] MEDS: Escitalopram Oxalate 20 MG Tablet PO (09:10)
[2019-06-19] MEDS: Lidocaine 5% Patch 1 PATCH TOPICAL (09:10)
[2019-06-19] MEDS: Pantoprazole Sodium 40 MG Tablet PO (09:11)
[2019-06-19] MEDS: Clopidogrel Bisulfate 75 MG Tablet PO (09:11)
[2019-06-19 14:14] VITALS: BMI 39.0
--- NOTE | 2019-06-19 15:36 | CASEMGMT ---
Addendum entered by Michelle Castrejon 06/19/19 16:56: Contacted several [facility] agencies and unable to accept pt insurance. Referred to [facility] whom is able to accept. Original Note: Social Work Met with pt to discuss DC plans. Pt to DC home with daughter 06/21. No DME needs. Pt requested HHC, provided pt list with [facility] agencies. Palliative to meet with pt on this date. Plan: DC 06/21 with daughter, no DME, [facility]-PT/OT/SN, Palliative referral made Nereida Velazquez, social work buyer intern Michelle Castrejon, CUTTER BARREL DRUM ANATOMICAL EMBALMER
--- NOTE | 2019-06-19 16:04 | CASEMGMT ---
Social Work Reviewed and agreed with social work civil engineering intern documentation on this date. Michelle Castrejon, ADULT FAMILY HOME PROGRAM MANAGER REGULATORY COORDINATOR
[2019-06-19] MEDS: traMADol 50 MG Tablet PO (17:53)
[2019-06-19 18:51] VITALS: BP 126/65; PULSE 74; RESP 16; TEMP 36.8; O2SAT 96
[2019-06-19] MEDS: Atorvastatin Calcium 40 MG Tablet PO (21:00)
[2019-06-19 21:08] VITALS: BMI 39.0
[2019-06-19] MEDS: traZODone 100 MG Tablet PO (21:12)
[2019-06-20] MEDS: traMADol 50 MG Tablet PO ×3 (03:08→20:57)
[2019-06-20] MEDS: Acetaminophen 500 MG Tablet 1000 MG PO ×3 (05:07→17:43)
[2019-06-20 06:40] VITALS: PULSE 84; RESP 18; O2SAT 94
[2019-06-20] MEDS: Ipratropium/Albuterol Sulfate 3 ML AMPUL.NEB INHALATION ×2 (06:40→19:15)
[2019-06-20 07:15] VITALS: BP 139/72; PULSE 83; RESP 16; TEMP 36.8; O2SAT 91
[2019-06-20] MEDS: Furosemide 20 MG Tablet PO (09:34)
[2019-06-20] MEDS: Amiodarone 200 MG Tablet 400 MG PO (09:34)
[2019-06-20] MEDS: Magnesium Oxide 400 MG Tablet PO (09:34)
[2019-06-20] MEDS: Aspirin 81 MG TAB.CHEW PO (09:34)
[2019-06-20 09:35] VITALS: PULSE 91
[2019-06-20] MEDS: Metoprolol Tartrate 50 MG Tablet PO (09:35)
[2019-06-20] MEDS: Pantoprazole Sodium 40 MG Tablet PO (09:35)
[2019-06-20] MEDS: Escitalopram Oxalate 20 MG Tablet PO (09:35)
[2019-06-20] MEDS: Lidocaine 5% Patch 1 PATCH TOPICAL (09:35)
[2019-06-20] MEDS: Clopidogrel Bisulfate 75 MG Tablet PO (09:35)
--- NOTE | 2019-06-20 11:48 | PN_ITS ---
Progress Note Afebile VSS-blood pressure is coming under better control with the addition of lisinopril to her drug regimen. Maintaining appropriate oxygen saturation on RA Oral intake is good Weight is stable Discussed with nursing - no problems that need addressed Reviewed the PT/OT notes Medication list reviewed. She is c/o R breast pain......this pain radiates to the back...mid thoracic on the right and I suspect it is due to a rib lesion. No Left chest pain and no SOB. Cough is much improved. She is worried that the cravings for cigarettes will come back tomorrow when she is going home because her anxiety level is going to increase. She feels a little better with less craving today since the Nicotine patch has been applied. Did not sleep well last night. Awoke at 3 AM and then could not go back to sleep. Alert and oriented X3 appears in no distress, pleasant and talkative Lungs - CTA today with better air exchange. No conversational dyspnea, not tachypneic, no accessory muscle use. Chest has tenderness with palpation of the right chest at the sternocostal junction from ribs 4-7. She also has pain with palpation of the right mid thoracic area. Heart - RRR with no gallop abd - soft, NT, ND, normal BS's No edema, no calf tenderness, cyanosis no new focal neurologic deficits The incision is healing and there is no paulie-incisional erythema or increased warmth to touch. There are small scabbed areas at the site of drains and skin tears which are also healing. Impressions 1. 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 S/P 2 vessel CABG on 06/08/19 at [facility] 3. hx of VF arrest post op and VT. On amiodarone. 4. Tobacco dependence - She is now on a Nicotine patch and we increased the Escitalopram to 20 mg however, this will take a few weeks to really take effect. She is worried about cravings after going home because her anxiety will increase. I think it is imperative to control the anxiety if she is going to remain smoke free. Will start Buspar 5 mg TID today and continue Buspar at DC for at least a few weeks to control anxiety until the increased dose of the Lexapro kicks in. 5. HTN - was not optimally controlled with systolics consistently > 140. Lisinopril 5 mg was added and the BP's are coming down 6. R chest and back pain suspicious for a rib lesion - Zanaflex at bedtime tonight and evaluate in the AM for possible need for OMT. Will continue moist heat. STROKE Vital Signs/Narrative: Vital Signs Pulse 06/20/19 09:35 91 Code Visit Inpatient E&M: 09160 Subs Hosp L2
[2019-06-20 14:04] VITALS: BMI 39.0
[2019-06-20] MEDS: busPIRone 5 MG Tablet PO ×2 (14:12→21:09)
[2019-06-20 19:09] VITALS: BP 102/54; PULSE 72; RESP 16; TEMP 36.7; O2SAT 93
[2019-06-20 19:28] VITALS: PULSE 74; RESP 18; O2SAT 94
[2019-06-20 20:52] VITALS: BMI 39.0
[2019-06-20] MEDS: tiZANidine HCl 2 MG Tablet 4 MG PO (20:58)
[2019-06-20] MEDS: Atorvastatin Calcium 40 MG Tablet PO (21:03)
[2019-06-20] MEDS: traZODone 100 MG Tablet PO (21:07)
[2019-06-21] MEDS: Acetaminophen 500 MG Tablet 1000 MG PO ×2 (05:58→12:03)
[2019-06-21] MEDS: busPIRone 5 MG Tablet PO (05:59)
[2019-06-21] MEDS: Ipratropium/Albuterol Sulfate 3 ML AMPUL.NEB INHALATION (06:15)
[2019-06-21 06:17] VITALS: PULSE 75; RESP 16
[2019-06-21 08:55] VITALS: BP 146/75; PULSE 87; RESP 18; TEMP 37.1; O2SAT 95
--- NOTE | 2019-06-21 09:25 | CASEMGMT ---
Social Work IDT net with pt and pt daughter. Pt independent for transfers, all ADLS, is able to walk on different surfaces and is doing a flight of stairs. PT recommending waiting until week 3 of being home to do stairs at home to basement. Pt TUG now at 8 seconds but still has difficulty with SOB and gen weakness. Pt reports occasional double vision, OT recommending alternating eye patch for improvement. MD recommending pulmonary testing and sleep study, pt to go home with inhaler, RT to educate pt before DC. Continued to educate on consistent use of thoracic vest. Educated pt on insurance, DC with [facility] PT/OT/SN, no DME needs, daughter to get shower chair. Pt to have palliative appointment 07/05 at 2pm. Plan: DC home with daughter, [facility] PT/OT/SN, no DME needs, pt to go home with inhaler and MD recommending sleep study and pulmonary testing. Nereida Velazquez, social work agriculture intern Michelle Castrejon, PIE FILLING MIXER DISTRICT FIRE CHIEF
--- NOTE | 2019-06-21 09:34 | EKG12_ITS ---
Test Reason : Blood Pressure : / mmHG Vent. Rate : 079 BPM Atrial Rate : 079 BPM P-R Int : 132 ms QRS Dur : 094 ms QT Int : 394 ms P-R-T Axes : 059 027 115 degrees QTc Int : 451 ms Normal sinus rhythm Nonspecific T wave abnormality Abnormal ECG When compared with ECG of 16-JUN-2019 05:30, No significant change was found Confirmed by SHERRY AQUINO, ALTAF ([id number]), commissioning editor OLGA NEWMAN ([id number]) on 06/25/2019 2:42:45 PM Referred By: MAXIMILIANO Confirmed By:ALEKSANDAR POWELL MD
[2019-06-21] MEDS: Aspirin 81 MG TAB.CHEW PO (09:51)
[2019-06-21] MEDS: Magnesium Oxide 400 MG Tablet PO (09:52)
[2019-06-21] MEDS: Amiodarone 200 MG Tablet 400 MG PO (09:53)
[2019-06-21] MEDS: Escitalopram Oxalate 20 MG Tablet PO (09:54)
[2019-06-21] MEDS: Furosemide 20 MG Tablet PO (09:54)
[2019-06-21] MEDS: Lidocaine 5% Patch 1 PATCH TOPICAL (09:55)
[2019-06-21 09:56] VITALS: PULSE 87
[2019-06-21] MEDS: Metoprolol Tartrate 50 MG Tablet PO (09:56)
[2019-06-21] MEDS: Pantoprazole Sodium 40 MG Tablet PO (09:57)
[2019-06-21] MEDS: Clopidogrel Bisulfate 75 MG Tablet PO (09:57)
--- NOTE | 2019-06-21 10:49 | NURSING ---
2 sutures removed from distal incision at this time. pt tolerated procedure well. pt voices no c/o discomfort with procedure.
[2019-06-21 10:51] VITALS: BMI 39.0
--- NOTE | 2019-06-21 11:07 | PCM.DC ---
- Discharge Diagnoses Current Active Problems: Current Active and Chronic Problems (Last Reviewed 06/17/19 @ 13:[address] Irene Ferraro, DO) S/P CABG (coronary artery bypass graft) (Acute) 06/08/[address] Riley ar [facility]. MARTINEZ -LAD and SVG-RCA History of left-sided carotid endarterectomy (Chronic) 2013 Obesity (BMI 30-39.9) (Chronic) BPPV (benign paroxysmal positional vertigo) (Chronic) Diverticulosis (Chronic) Migraine headache with aura (Chronic) CVA (cerebral vascular accident) (Acute) 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 Cardioembolic Cardiac arrest with ventricular fibrillation (Acute) X3 immediately after CABG with defibrillation X 2 Ventricular tachycardia (paroxysmal) (Acute) COPD (chronic obstructive pulmonary disease) (Chronic) Anxiety and depression (Acute) You will use the following diet at home:: Cardiac - This means low salt and low fat. the chief financial officer also recommends a 8039-1019 calorie diet to promote weight loss. Your food should be the consistency of: Regular Your liquids should be the consistency of: Regular/Thin Discharge Activity: May Not Drive, May Shower, - - either wear a tight sports bra or the vest to support the incision and prevent it from opening Weight Bearing Status: Full weight bearing Call your doctor if your incision/area has: Continuous Slow Oozing, Sudden Increased Bleeding, Increased Pain/ Swelling, Increased Redness, Foul Smelling Discharge, Swelling at the incision site Call your doctor if you observe: Fever of 101 or Higher, Inability to urinate, Inability to have a bowel movement, Shortness of breath, Dizziness, Fainting spells, Swelling in the ankles, Chest pain, Increased palpitations (irregular heartbeat), Calf discomfort, Uncontrolled pain Cleanse incision/area with: Soap & Water Instructions: MyPlate Worksheet: 1,600 Calories, MyPlate Worksheet: 1,800 Calories, After Coronary Artery Bypass Surgery, Controlling Your Risk Factors After Bypass Surgery, Low-Fat Cooking Tips, Your Emotional Health After Bypass Surgery, Your Heart is at Risk, Tips for Quitting Smoking (Cardiovascular), Why Do You Smoke?, Planning to Quit Smoking, Getting Support for Quitting Smoking Additional Instructions: 1. I have given you a list of your medications to take. You can discard the other meds. 2. Weight loss will help with you heart health. The chief financial officer recommends a 1600 to 1800 calorie diet....this will get you to a healthy weight gradually. Fast weight loss is not good because it always comes back. Start making better choices for the rest of your life. It takes a while to consistently make better choices....keep at it. If you have trouble with weight loss you can ask Dr. Rojo for a referral to the [facility] program run by the dieticians here at the hospital. They will help you! 3. Exercise is VERY important for the rest of your life! the goal is 30 minutes of aerobic exercise every day. This will help keep your heart healthy. 4. I had to stop the Trazodone due to an interaction between escitalopram, Trazodone and Amiodarone. The amiodarone keeps your heart in a regular rhythm and you need the Escitalopram to control anxiety and depression so I got rid of the Trazodone. All of these medications cause an interval (the QT interval) of the EKG to be prolonged which is not a good thing.......it can lead to ventricular tachycardia. Your QT is on the borderline of being prolonged so I think discontinuing the Trazodone is the appropriate thinkg to do. I have given you a prescription for Melatonin. You can take 1-2 tabs at night to help you sleep. 5. In my opinion you should see a marine engineer cpvec (lung doctor). I think you have COPD and I also think you have sleep apnea. Sleep apnea causes chronic sleep depricvation and it is associated with depression, HTN, addictions, chronic fatigue, increased BP in the lungs, etc. Please get tested. 6. It was a pleasure to meet you. I hope you have a nice birthday Tuesday.......think of this as your rebirth since you have been given a second chance at life! Start at 1. 7. If you have bad cravings to smoke we can help. There is a smoking cessation program at the hospital and all you have to do is call and ask the otr owner operator to connect you to the smoking cessation coordinator. You could also ask Dr. Rojo to consider Buspar to help control you anxiety better. Allergies/Adverse Reactions: Allergies No Known Allergies Allergy (Verified 05/30/19 12:19) Medications to take at Discharge Omeprazole [Prilosec] 20 mg PO DAILY PRN PRN 08/09/13 Albuterol Inhaler [Ventolin Hfa] 2 puff INHALATION Q4H PRN PRN #1 inhaler 06/21/19 Amiodarone HCl [Cordarone] 400 mg PO DAILY #60 tab 06/21/19 Aspirin [Aspirin, Baby] 81 mg PO DAILY@0800 tab.chew 06/21/19 Atorvastatin Calcium [Lipitor] 40 mg PO QHS #30 tab 06/21/19 Clopidogrel Bisulfate [Plavix] 75 mg PO DAILY #30 tab 06/21/19 Escitalopram Oxalate [Lexapro] 20 mg PO DAILY #30 tab 06/21/19 Furosemide [Lasix] 20 mg PO DAILY #30 tab 06/21/19 Magnesium Oxide [Mag-Ox 400] 400 mg PO DAILYCM #30 tab 06/21/19 Melatonin/Pyridoxine [Melatonin 5 mg Tablet] 1 ea PO QHS #60 tab 06/21/19 Metoprolol Tartrate 25 mg PO BID #60 tab 06/21/19 Nicotine [Nicoderm Cq] 21 mg TRANSDERM. DAILY #28 patch 06/21/19 Potassium Chloride [K-Dur] 20 meq PO DAILYCM #30 tab 06/21/19 traMADol [Ultram] 50 mg PO Q6H PRN PRN #20 tab 06/21/19 The following prescriptions were given: Amiodarone HCl [Cordarone] 400 mg PO DAILY #60 tab Transmission Status: Received by [facility] Potassium Chloride [K-Dur] 20 meq PO DAILYCM #30 tab Transmission Status: Received by [facility] Furosemide [Lasix] 20 mg PO DAILY #30 tab Transmission Status: Received by [facility] Escitalopram Oxalate [Lexapro] 20 mg PO DAILY #30 tab Transmission Status: Received by [facility] Atorvastatin Calcium [Lipitor] 40 mg PO QHS #30 tab Transmission Status: Received by [facility] Magnesium Oxide [Mag-Ox 400] 400 mg PO DAILYCM #30 tab Transmission Status: Received by [facility] Melatonin/Pyridoxine [Melatonin 5 mg Tablet] 1 ea PO QHS #60 tab Transmission Status: Received by [facility] Metoprolol Tartrate 25 mg PO BID #60 tab Transmission Status: Received by [facility] Nicotine [Nicoderm Cq] 21 mg TRANSDERM. DAILY #28 patch Transmission Status: Received by [facility] Clopidogrel Bisulfate [Plavix] 75 mg PO DAILY #30 tab Transmission Status: Received by [facility] traMADol [Ultram] 50 mg PO Q6H PRN PRN #20 tab PRN Reason: Pain Score 1-10/10 Transmission Status: Received by [facility] Albuterol Inhaler [Ventolin Hfa] 2 puff INHALATION Q4H PRN PRN #1 inhaler PRN Reason: wheezing/SOB Transmission Status: Received by [facility] Primary Care Physician: Jaxon Rojo III, MD [Primary Care Provider] - Please follow up with your Primary Care Physician in: 1 week Test Results: Test results from this visit will be discussed in further detail at your follow-up appointment, if applicable. Please Follow Up With: Neal Auguste Please Follow Up With: Dr Albright Cardiology When: 6-8 weeks Please Follow Up With: Dr Hillary Frazier Neurology When: 4-6 weeks Please Follow Up With: Palliative Medicine Please Follow Up With: Dr Moreno Pulmonary Proposed Discharge Date: 06/21/19
[2019-06-21 11:34] VITALS: BP 146/75; PULSE 87; RESP 18; TEMP 37.1; O2SAT 95
--- NOTE | 2019-06-21 11:34 | DS.PCM_ITS ---
Discharge Date and Diagnosis - Problem List Patient Problems: Active and Suspected Problems (Last Reviewed 06/17/19 @ 13:[address] Irene Ferraro DO) Sleep-disordered breathing (Acute) Non-cardiac chest pain (Acute) Date of Admission: 06/15/19 Date of Discharge: 06/21/19 - Primary Discharge Diagnosis Active and Suspected Problems (Last Reviewed 06/17/19 @ 13:[address] 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 Riley ar [facility]. MARTINEZ -LAD and SVG-RCA CVA (cerebral vascular accident) (Acute) BL thalami and left temporal-occipital with small hemorrhagic transformation L thalamus - jo-ann-operative following CABG. Cardioembolic Cardiac arrest with ventricular fibrillation (Acute) - resolved X3 immediately after CABG with defibrillation X 2 Ventricular tachycardia (paroxysmal) (Acute) - resolved COPD (chronic obstructive pulmonary disease) (Suspected) Sleep-disordered breathing (Acute) - suspect MADELINE Non-cardiac chest pain (Acute) -more likely than not secondary to musculoskeletal pain and possibly a rib lesion - Secondary Discharge Diagnosis Chronic Problems (Last Reviewed 06/17/19 @ 13:[address] Irene Ferraro DO) History of left-sided carotid endarterectomy (Chronic) 2013 Obesity (BMI 30-39.9) (Chronic) BPPV (benign paroxysmal positional vertigo) (Chronic) - also with ringing in her ears - may have Meniere's Diverticulosis (Chronic) Migraine headache with aura (Chronic) Atherosclerosis of coronary artery of [place] heart without angina pectoris (Chronic) Bilateral carotid artery stenosis (Chronic) Left CEA 08/27/2013 Essential (primary) hypertension (Chronic) Hyperlipidemia (Chronic) Nicotine dependence (Chronic) 1 or > daily for 40-45 years Anxiety and depression (Acute) Stage III CRF Hospital Course and Treatment none Operations: - - CABG x 2 vessels at [facility] on 06/08/19 Procedures: None Summary of Care Provided: The patient is a 63 year old F with a past medical history of hypertension, hyperlipidemia, COPD, CAD with two-vessel CABG on 06/08/2019, carotid stenosis bilaterally with left carotid endarterectomy in 2013, nicotine dependence with cigarettes, obesity, anxiety/depression, benign paroxysmal positional vertigo, diverticulosis, migraine headaches, meningioma with resection in 2000, DVT in 2013 (unprovoked), ventricular tachycardia, V. fib arrest x3 postoperatively with defibrillation x2 and post-operative CVAs (bilateral thalamus and left temporal/occipital with small hemorrhagic transformation in the left thalamus thought to be cardioembolic who was admitted to the inpatient rehab unit on for debility due to recent CVS's for > 3 hours of therapy daily to restore function at or near her prior level of independence. Prior to recent surgery she was managing her ADL's independently and was driving. Admitting lab was unremarkable with the exception of normochromic normocytic anemia which is more likely than not secondary to blood loss from her recent surgery. Creatinine was 1.05 and is in keeping with prior results. When She arrived in the rehab unit she had smoking cessation counselling. She does not like to talk about this but, we talked about the challenges she will face to remain smoke free at home. She has a problem with anxiety and in the past when she was able to quit smoking she started again when she got stressed out. She has had a lot of stress in her life recently and is fearful that when she goes home she will want to smoke. The Escitalopram was increased to 20 mg daily. She was also trialed on BuSpar 5 mg 3 times daily but she felt that it may have caused a headache and did not want to go home with a prescription. She was referred to the smoking cessation program at [facility] should she find it difficult to abstain from smoking. She will also discuss her anxiety with Dr. Rojo and possibly be referred to mental Health to learn to control her stress level without medication or try the Buspar again. Her systolic BP was consistently > 140 and Lisinopril 5 mg daily was started. BP is coming under good control at the time of discharge. I chose not to increase the Metoprolol because she is now on Amiodarone for VT and bradycardia was a problem at [facility] and they decreased the Metoprolol. Amiodarone, Lexapro and Trazodone (takes for sleep) all prolong the QT interval. An EKG was done prior to DC and the QTc was 451. The Trazodone was discontinued and she was given a prescription for Melatonin prior to DC. At the time of DC she still had some diplopia but she was ambulating independently without an AD. She did very well with therapy and was discharged home on 06/21/19 with [facility] for continued PT and OT. She will follow up with Dr. Rojo in [address] Albright in 6-8 weeks. She also has an appt to followup with the surgeon and neurology. Alert, oriented x3, no apparent distress, sitting in recliner at the bedside Lungs-clear to auscultation with no wheezes, rhonchi or rails. There is diminished air exchange and I suspect that she has COPD but has never had PFTs. Heart-regular rate and rhythm, no gallop, no rub, no ectopy Abdomen-soft, nontender, nondistended, normal bowel sounds heard in all 4 quadrants. She has 2 stitches in the upper abdomen which were removed prior to discharge. The sternal incision is healing well with no jo-ann-incisional erythema and no discharge. She has some musculoskeletal pain in the right upper chest that she thinks is secondary to the vest that she is wearing to prevent the incision from pulling apart given her larger breasts. I suspect she may have a rib lesion but, she did not want me to do manipulation to see if a rib correction would help. If she still has the pain when she has a good fitting bra on and not the vest she will consult a chiropracter. No calf pain. This note was generated with [employer] dictation software. It may contain incorrect words, spelling, and punctuation that were not noted in checking the note before signing. Patient Problems: Active and Suspected Problems (Last Reviewed 06/17/19 @ 13:[address] Irene Ferraro DO) Sleep-disordered breathing (Acute) Non-cardiac chest pain (Acute) - Physical Exam Vitals/I&O's: Vital Signs Temp Pulse Resp BP Pulse Ox 98.7 F 87 18 146/75 H 95 06/21/19 08:55 06/21/19 09:56 06/21/19 08:55 06/21/19 08:55 06/21/19 08:55 Oxygen Delivery Method Room Air Weight: 216 lb 7.903 oz Body Mass Index (BMI) 39.0 Intake and Output for Last 24 Hours 02/18/20 02/19/20 02/20/20 23:59 23:59 23:59 Intake Total 1060 / 1060 900 / 900 360 / 360 Balance 1060 / 1060 900 / 900 360 / 360 Current Medications Acetaminophen (Tylenol) 1,000 mg PO Q6 [facility] Last Admin: 06/21/19 05:58 Dose: 1,000 mg Documented by: Albuterol Sulfate (Ventolin Hfa (Sp)) 2 puff INHALATION Q6H PRN PRN Albuterol/Ipratropium (Duoneb) 3 ml INHALATION TID.RT [facility] Last Admin: 06/21/19 06:15 Dose: 3 ml Documented by: Amiodarone HCl (Cordarone) 400 mg PO DAILY [facility] Last Admin: 06/21/19 09:53 Dose: 400 mg Documented by: Aspirin (Aspirin, Baby) 81 mg PO DAILY@0800 [facility] Last Admin: 06/21/19 09:51 Dose: 81 mg Documented by: Atorvastatin Calcium (Lipitor) 40 mg PO QHS [facility] Last Admin: 06/20/19 21:03 Dose: 40 mg Documented by: Bisacodyl (Dulcolax) 10 mg RECTAL .PRN X 1 PRN PRN Reason: Constipation Buspirone HCl (Buspar) 5 mg PO TID [facility] Last Admin: 06/21/19 05:59 Dose: 5 mg Documented by: Clopidogrel Bisulfate (Plavix) 75 mg PO DAILY [facility] Last Admin: 06/21/19 09:57 Dose: 75 mg Documented by: Escitalopram Oxalate (Lexapro) 20 mg PO DAILY [facility] Last Admin: 06/21/19 09:54 Dose: 20 mg Documented by: Furosemide (Lasix) 20 mg PO DAILY [facility] Last Admin: 06/21/19 09:54 Dose: 20 mg Documented by: Lidocaine (Lidoderm Patch) 1 patch TOPICAL DAILY [facility]; Protocol Last Admin: 06/21/19 09:55 Dose: 1 patch Documented by: Magnesium Hydroxide (Milk Of Magnesia) 30 ml PO .PRN X 1 PRN PRN Reason: Constipation [facility] Admin: 06/21/19 09:52 Dose: 400 mg Documented by: Metoprolol Tartrate (Lopressor (Beta Florentino)) 50 mg PO DAILY [facility] Last Admin: 06/21/19 09:56 Dose: 50 mg Documented by: Nicotine (Nicoderm Cq (Pbkc)) 21 mg TRANSDERM. DAILY [facility] Last Admin: 06/21/19 09:57 Dose: 21 mg Documented by: Pantoprazole Sodium (Protonix) 40 mg PO DAILY [facility] Last Admin: 06/21/19 09:57 Dose: 40 mg Documented by: Polyethylene Glycol (Miralax) 17 gm PO DAILY [facility] Last Admin: 06/21/19 09:56 Dose: Not Given Documented by: Potassium Chlor[facility] ([facility]Dur) [facility] Last Admin: 06/21/19 09:51 Dose: 20 meq Documented by: Senna/Docusate Sodium (Senokot-S, Jo-Ann-Colace) 1 tablet PO BID PRN PRN PRN Reason: CONSTIPATION Tramadol HCl (Ultram) 50 mg PO Q6H PRN PRN PRN Reason: Pain Score 1-1010 Last Admin: 06/20/19 20:57 Dose: 50 mg Documented by: Trazodone HCl (Desyrel) 100 mg PO QHS PRN PRN PRN Reason: INSOMNIA Last Admin: 06/20/19 21:07 Dose: 100 mg Documented by: Discharge Activity: May Not Drive, May Shower, - - either wear a [employer] b ra or the vest to support the incision and prevent it from opening Weight Bearing Status: Full weight bearing Call your doctor if your incision/area has: Continuous Slow Oozing, Sudden Increased Bleeding, Increased Pain/ Swelling, Increased Redness, Foul Smelling Discharge, Swelling at the incision site Call your doctor if you observe: Fever of 101 or Higher, Inability to urinate, Inability to have a bowel movement, Shortness of breath, Dizziness, Fainting spells, Swelling in the ankles, Chest pain, Increased palpitations (irregular heartbeat), Calf discomfort, Uncontrolled pain Cleanse incision/area with: Soap & Water Home Medications: Medications to take at Discharge Omeprazole [Prilosec] 20 mg PO DAILY PRN PRN 08/09/13 Albuterol Inhaler [Ventolin Hfa] 2 puff INHALATION Q4H PRN PRN #1 inhaler 06/21/19 Amiodarone HCl [Cordarone] 400 mg PO DAILY #60 tab 06/21/19 Aspirin [Aspirin, Baby] 81 mg PO DAILY@0800 tab.chew 06/21/19 Atorvastatin Calcium [Lipitor] 40 mg PO QHS #30 tab 06/21/19 Clopidogrel Bisulfate [Plavix] 75 mg PO DAILY #30 tab 06/21/19 Escitalopram Oxalate [Lexapro] 20 mg PO DAILY #30 tab 06/21/19 Furosemide [Lasix] 20 mg PO DAILY #30 tab 06/21/19 Magnesium Oxide [Mag-Ox 400] 400 mg PO DAILYCM #30 tab 06/21/19 Melatonin/Pyridoxine [Melatonin 5 mg Tablet] 1 ea PO QHS #60 tab 06/21/19 Metoprolol Tartrate 25 mg PO BID #60 tab 06/21/19 Nicotine [Nicoderm Cq] 21 mg TRANSDERM. DAILY #28 patch 06/21/19 Potassium Chloride [K-Dur] 20 meq PO DAILYCM #30 tab 06/21/19 traMADol [Ultram] 50 mg PO Q6H PRN PRN #20 tab 06/21/19 Following Prescrptions Were Given to Patient: Amiodarone HCl [Cordarone] 400 mg PO DAILY #60 tab Transmission Status: Received by [facility] Potassium Chloride [K-Dur] 20 meq PO DAILYCM #30 tab Transmission Status: Received by [facility] Furosemide [Lasix] 20 mg PO DAILY #30 tab Transmission Status: Received by [facility] Escitalopram Oxalate [Lexapro] 20 mg PO DAILY #30 tab Transmission Status: Received by [facility] Atorvastatin Calcium [Lipitor] 40 mg PO QHS #30 tab Transmission Status: Received by [facility] Magnesium Oxide [Mag-Ox 400] 400 mg PO DAILYCM #30 tab Transmission Status: Received by [facility] Melatonin/Pyridoxine [Melatonin 5 mg Tablet] 1 ea PO QHS #60 tab Transmission Status: Received by [facility] Metoprolol Tartrate 25 mg PO BID #60 tab Transmission Status: Received by [facility] Nicotine [Nicoderm Cq] 21 mg TRANSDERM. DAILY #28 patch Transmission Status: Received by [facility] Clopidogrel Bisulfate [Plavix] 75 mg PO DAILY #30 tab Transmission Status: Received by [facility] traMADol [Ultram] 50 mg PO Q6H PRN PRN #20 tab PRN Reason: Pain Score 1-10/10 Transmission Status: Received by [facility] Albuterol Inhaler [Ventolin Hfa] 2 puff INHALATION Q4H PRN PRN #1 inhaler PRN Reason: wheezing/SOB Transmission Status: Received by [facility] Primary Care Physician: Jaxon Rojo III, MD [Primary Care Provider] - Please follow up with your Primary Care Physician in: 1 week Please Follow Up With: Neal Auguste Please Follow Up With: Dr Albright Cardiology When: 6-8 weeks Please Follow Up With: Dr Hillary Frazier Neurology When: 4-6 weeks Please Follow Up With: Palliative Medicine Please Follow Up With: Dr Moreno Pulmonary Patient Instructions: Tips for Quitting Smoking (Cardiovascular), Low-Fat Cooking Tips, Why Do You Smoke?, Planning to Quit Smoking, Getting Support for Quitting Smoking, After Coronary Artery Bypass Surgery, MyPlate Worksheet: 1,600 Calories, MyPlate Worksheet: 1,800 Calories, Controlling Your Risk Factors After Bypass Surgery, Your Emotional Health After Bypass Surgery, Your Heart is at Risk Disposition: Home with Home Health Minutes spent on discharge:: 40 Patient Condition:: Good Medical Necessity - Tobacco Use Smoking Status: Current every day smoker Tobacco Use: Cigarettes Meaningful Use Info Meaningful Use Diagnoses (Choose all that apply): Ischemic CVA - CVA Therapy Assessed for PT,OT and/or ST?: Yes - Ischemic Stroke Antithrombotic order at d/c?: Yes Dx of Atrial fib/flutter?: No Anticoagulant at discharge?: No Reason anticoagulant not ordered: Treatment not Indicated Statins at discharge?: Yes Primary Dx Acute Ischemic CVA?: Yes IV tPA ordered during stay?: No Reason IV t-PA not ordered: Treatment not Indicated Code Visit Inpatient E&M: 59079 Disch Hosp
[2019-06-21] MEDS: traMADol 50 MG Tablet PO (12:04)
--- NOTE | 2019-06-21 12:31 | NURSING ---
pt discharged home with family. discharge instructions, medications and follow up appointments given. pt verbalizes understanding.
--- NOTE | 2019-06-22 12:09 | PCM.PN.BLA ---
Progress Note I made a call to Veronica's cell phone to see if she had questions or needed anything. She is doing well and is going to meet with home health shortly today. She did not sleep well last night and has been up since 1 AM. She was taken off Trazodone due to it's potential to increase QTc. She is also taking Amiodarone and Lexapro both of which prolong QTc. She had v fib arrest and VT post-operatively at [facility] and QTc prolongation should be avoided. Lexapro is the most likely of the SSRI's to cause QTc prolongation. Duloxetine does not cause QTc prolongation. I talked with Dr. Rojo about the insomnia and the QT prolongation and recommended she be switched top Duloxetine. Will need to hold the Lexapro for a few days prior to starting Duloxetine to prevent Serotonin S. She is on a low dose of Trazodone at bedtime and this is only for insomnia. The Qtc prolongation with Trazodone is dose related. I think once she is switched to Duloxetine she can restart Trazodone for insomnia but limit the dose to no more than 100 mg at bedtime. Would recheck a EKG after she has been on the Duloxetine a few weeks to check the QTc interval. Will send Dr. Rojo a copy of the EKG done 06/21/19 in the rehab unit prior to DC.
== END 2019-06-21 12:20 | disposition home health service (06) | DRG 950 ==
PROVIDERS: Admitting Provider Internal Medicine; PCP Family Medicine; Visit Provider Internal Medicine
DX: Z48.812 Encounter for surgical aftercare following surgery on the circulatory system (principal); Z95.1 Presence of aortocoronary bypass graft; I25.10 Atherosclerotic heart disease of native coronary artery without angina pectoris; Z23 Encounter for immunization; E66.9 Obesity, unspecified; N18.3 Chronic kidney disease, stage 3 (moderate); I12.9 Hypertensive chronic kidney disease with stage 1 through stage 4 chronic kidney disease, or unspecified chronic kidney disease; E78.5 Hyperlipidemia, unspecified; G43.109 Migraine with aura, not intractable, without status migrainosus; J44.9 Chronic obstructive pulmonary disease, unspecified; F41.9 Anxiety disorder, unspecified; F32.9 Major depressive disorder, single episode, unspecified; F17.210 Nicotine dependence, cigarettes, uncomplicated; Z68.39 Body mass index [BMI] 39.0-39.9, adult; Z71.3 Dietary counseling and surveillance; Z86.718 Personal history of other venous thrombosis and embolism; Z86.74 Personal history of sudden cardiac arrest
CPT/HCPCS: 80053; 83735; 85025; 92523; 93005; 94640; 97110; 97112; 97116; 97161; 97166; 97530; 97535; 97802; 99251; 99406; 90686; G0463

== ENCOUNTER → 2019-10-26 12:49 | Outpatient (CLI) | payer OTHER, SELFPAY ==
[2019-08-28 16:03] VITALS: BMI 38.0
[2019-10-25 09:47] VITALS: BMI 38.0
--- NOTE | 2019-10-26 12:54 | CR.ITP_ITS ---
Diagnosis - General Information Admitting Diagnosis: CABG X2 Personal Learning Style:: Audio/Visual, Demonstration, Group, Individual Preference, Written Barriers to Learning: Vision Impairment - PT STATES HER VISION HAS CAUSED HER PROBLEMS HER MINI MILE Gave educational material for:: Treating Heart Disease, Emotions & Heart Disease, Stress Management & Relaxation, Sleep Disorders & Heart Disease, How The Heart Works - PT GIVEN INFO ON [facility] WEBSITE AND INSTRUCTIONS (VERBAL AND WRITTEN) ON HOW TO ACCESS, What it means to have Heart Disease, How Coronary Artery Disease is Diagnosed, Heart Procedures, What Heart Medications Do, Risk Factors & Modifications, Living an Active Life, Nutrition - Education/Goals Individual Counseling: Initial Assessment: Nicotine/Smoking, High Blood Pressure, Overweight/Obesity, Metabolic Syndrome (as evidenced by 3 of 5 A-E below), Hypertension, Sedentary Lifestyle, Stress - FRIEND RECENTLY , Family History of Heart Disease (under 65 years) Cardiac Rehabilitation Goals: 1. Maintain the individual as the primary focus of care. 2. To improve the patient's quality of life. 3. Identification of cardiac risk factors and provide cardiac risk factor management. 4. Enhance the psychosocial status of the patient. 5. Reconditioning enough to allow the patient to resume customary activities. 6. Control symptoms of cardiac disease Personal Goals: Initial Assessment: Quit smoking (participate in smoking cessation, Improve management of stress and emotions, Improve energy level, Participate in home exercise program, Get back to work, or to resume activities faster, Improve knowledge of cardiac disease, Improve muscle strength and endurance, Improve diet and eating habits (eat healthier), Control risk factors (learn risk factor modification), Other goal: - HAVE VISION AND BALANCE PROBLEMS Scale for measuring improvement of personal goals: Enter appropriate number in Comments. 2 = Unchanged. 3 = Slightly Better. 4 = Moderate Improvement. 5 = Met my Goal - Diagnosis & Disease Process Outcomes/Goals: Pt IDs own risk factors & lifestyle modifications by Session 10, Verbalizes symptoms of angina & response by session 3., Pt independently manages, Other Additional Outcomes/Goals: Plan/Interventions: Assist Pt to ID & engage in lifestyle modification to reduce CVD risk, Instruct on individual risk factors, Review symptoms of angina & emergency actions, Review secondary diagnosis & identify educational needs., Other see comment - Safety Referral to Physical Therapy: No Referral to [facility] Case Management: No Fall Risk Assessed:: No - PT STATES SHE OCCASIONALLY EXPERIENCES VISION AND BALANCE ISSUES MINI STOK Assistive Devices:: None Exercise - Initial Assessment - Visit Date of Eval: 10/26/19 - Physician Prescribed Exercise Modalities: Treadmill, Biodyne, Airdyne, NuStep, SciFit Frequency: 3x/week for 12 weeks [36 sessions] Intensity: 60-80% of age predicted maximum heart rate reserve Target Heart Rate:: 102-133 Resting Blood Pressure: 144/90 EKG Type: NSR Current Physical Activity or Exercising minutes: NONE - Outcomes & Goals Goals:: Verbalizes understanding of THR, RPE & goal METS by session 6, Documents in home exercise log/reports 30 min aerobic 5 day/wk by DC, Demonstrates accurate pulse taking by DC, Other additional outcome/goals: see below - Intervention & Plan Exercise Program Goals: Instruct on personal THR & RPE, Instruct on MET level & personal MET goal, Show patient to take own pulse /validate performance until accurate, Instruct on home exercise, Other additional plan/int - Physical Activity Home Exercise Physical Activity - Home Exercise: Safe Exercise, Warm-up, Self-monitoring, Cool-Down, Home Exercise > 30 min Daily, Sitting Time <3 hours/daily - Outcomes & Goals Outcomes/Goals: Demonstrates correct Warm-up/exercise Cool-Down (S3) if = 2.5 METs, Verbalizes symptoms of exercise intolerance by Session 3 (S3), Demonstrate safe equipment use (S3) & follows exercise prescrition (6), Other: See below - Intervention & Plan Plan/Intervention: Instruct warm-up & cool-down if exercising at > 2 METs, Instruct on symptoms of exercise intolerance & actions to take, Instruct & monitor on saf, Assess intial functional capacity & safety risk, Other See below Nutrition - Initial Assessment - Program Goals Nutrition Program Goals: LDL <100 optimal. 100 - 129 Near optimal. 130 - 159 Borderline High. 160 - 189 High. Total Cholesterol <200 desirable. 200 - 239 Borderline High. >/= 240 High. HDL < 40 Low >/=60 High. Triglycerides <150 desirable. <199 optimal. VlDL 5 - 40. HgbA1C <7%. BMI <25 - Visit Date of Assessment:: 10/26/19 - Cholesterol/Lipids Determine presence & major risk factors that modify LDL goal: Cigarette smoking, Hypertension or hypertensive medication, Low HDL cholesterol <40 mg/dL*, Family history of premature CHD in Male < 55 years: female <65 yearsFa, Age men > 45 years; women >/= 55 years Outcomes/Goals: Pt IDs own risk factors & lifestyle modifications by Session 10, Verbalizes symptoms of angina & response by session 3., Pt independently manages, Other Additional Outcomes/Goals: Intervention/Plan: Advocate for lipid panel cholesterol medication if applicable, Instruct on personal lipid levels & lipid goals/NCEP guidelines, Instruct on cholesterol, Other additional plan/int - Diabetes (Other Core Measures) Diabetes Type: Not Applicable - Weight Mgt (Other Care) Height: 5 ft 3 in Weight:: 215 lb BMI: 38.0 Diagnosis Overweight/Obesity BMI> 30% ICD-10 E66: No Diagnosis High BMI/Morbid Obesity BMI> 35% ICD-10 Z68: Yes Outcomes/Goals: Pt sets, maintains & shows weight loss goal & trend during rehab, Other additional outcomes/goals Intervention/Plan: Instruct on ideal BMI & set weight loss goal w/patient, Assist pt to ID & incorporate diet changes for weight loss by S9, Refer to Structured Weight Loss program as appropriate, Encourage goal of using 250- 300dcal per session for weight loss, Other additional plan/interventions - Healthy Eating Habits Will attend diet classes:: No Outcomes/Goals:: Consume diet rich in vegs,fruits,whole grain/high fiber,fish,lean meat, Limit sat/trans fats,cholesterol & added salts & sugars, Other additional outcome/goals: Intervention/Plan:: Assess current eating habits, Other Additional plan/interventions - Education Gave educational materials for:: Signs & symptoms of hypoglycemia, Signs & symptoms of hyperglycemia, Relate diabetes to coronary artery disease, Healthy eating - PT GIVEN VERBAL AND WRITTEN INSTRUCTIONS OF ON-LINE ECUCATION MATERIALS Medical - Initial Assessment - Visit Date of Eval: 10/26/19 - Medication Compliance Preventative Medication(s):: Aspirin, RANDOLPH inhibitor, Clopidogrel/P2Y12 inhibit, Statin/lipid, Beta jonathan H/O mental health issues: depression, anxiety, or addiction?: No Doesn?t believe in the benefits of treatment?: No Believes medications are unnecessary or harmful?: No Has a concern about medication side effects?: No Expresses concern over the cost of medications?: No Outcomes/Goals: Verbalizes medications,desired effect & common side effects @ DC, Pt self-reports following medication regimen, Keeps card in wallet w/medications listed by DC, Other additional outcome/goals: Interventions/plans: Instruct on medication effects & side effects, Review medication list w/patient every two weeks, Instruct importance of taking meds as ordered & assist problem solving, Other additional - Tobacco Use Tobacco Use: Cigarettes How many cigarettes do you smoke per day?: 5 Years Smokin Do you use smokeless tobacco?: No Outcomes/Goals: Smoking cessation achieved or maintained by discharge, Identify aids/strategies for achieving smoking cessation by session 6, Other additional outcome/goals Interventions/plan: Instruct on effects of smoking & provide smoking cessation resource, Assist pt to set quit date & provide encouragement, Assist pt to develop strategies to achieve/maintain quit date, Assist pt w/nicotine replacement & medication for cessation success, Other additional plan/interventions - Hypertension Hypertension Diagnosis:: Hypertension ICD-10 I10 [employer] Hypertension Guidelines: [place] [employer] Hypertension Guidelines. Normal BP Less than 120/80. Elevated BP 120/80. Hypertension Stage 1: BP 130-139/80-89. Hypertesnion Stage 2: BP 140 or higher/90 or higher. Hypertension Crisis: BP higher than 180/120 Outcomes/Goals: Able to verbalize/achieve optimal blood pressure <130/80, Incorporates diet changes & exercise for blood pressure control by DC, Other additional outcomes/goals Interventions/plan: Instruct on optimal blood pressure, hypertension & medications, Instruct on effects of sodium, alcohol, stress, exercise &hypertension, Other additional plan/interventions - Tobacco Cessation Referral Smoking Cessation Referral:: No Individual Education/Counseling:: No Education Schedule Given:: No - PT INFORMED OF THE SMOKING CESSATION OFFERED AT [facility], DECLINED AT PRESENT Psychosocial - Initial Assess - VIsit Date of Eval: 10/26/19 History of previous Mental disease:: No Self-reported stressors: Other - RECENT LOSS OF CLOSE FRIEND - Target Goals Target Goals: Assess presence or absence of depression. Using a valid screening tool, maximizes coping skills. Positive support system - Psychosocial Test Tool Used:: PHQ-9 Questionnaire phq-9 Severity: Severity. 1-4 Minimal Depression. 5-9 Mild Depression. 10-14 Moderate Depression. 15-19 Moderately Sever Depression. 20-27 Severe Depression. Rule: See PHQ-9 Score: 3 - Referral to Behavioral Health PS - Interventions: No Referral to Behavioral Health if PHQ-9 score >9:, No Referral to [facility], No Referral to Physician if PHQ-9 if score is 5-9:, No Attend Stress Management Classes - Outcomes/Goals: See list Psychosocial Outcomes/Goals:: ID's personal stressors & 2 strategies to manage stress by discharge, Other Additional outcome/goals: - Intervention/Plan: See List Interventions/Plan:: Assess stressors,coping strategies & signs of derpression on admission, Instruct/assist pt to develop coping & personal stress Mgt strategies, Refer to Behavioral Health if appropriate, Refer to Physician if appropriate, Instruct patient to recognize signs & symptoms of depression, Instruct patient to recog, Other additional plan/intervention Patient Health Questionnaire Initial Assessment 1. Little interest or pleasure in doing things: Not at all 2. Feeling down, depressed, or hopeless: Not at all 3. Trouble falling or staying asleep, or sleeping too much: Not at all 4. Feeling tired or having little energy: Not at all 5. Poor appetite or overeating: Several days 6. Feeling bad about yourself -- or that you are a failure or have let yourself or your family down: Several days 7. Trouble concentrating on things, such as reading the newspaper or watching television: Several days 8. Moving or speaking so slowly that other people could have noticed. Or the opposite - being so fidgety or restless that you have been moving around a lot more than usual: Not at all 9. Thoughts that you would be better off , or of hurting yourself in some way: Not at all How difficult have these problems made it for you to do your work, take care of things at home, or get along with other people?: Not difficult at all Total Score: 3 SOO-Q SV Test - Statements CAD is a disease of the arteries in the heart: False Examples of risk factors for heart disease: True Angina is chest pain or discomfort: I Don't Know The benefits of resistance training include: True Eating more meat and dairy products: False Anti-platelet medications such as aspirin are important: I Don't Know The only effective way to manage stress: False An exercise warm-up slowly increases heart rate: I Don't Know Prepared, processed foods usually have high sodium: True Depression is common after a heart attack: True The statin medications lower cholesterol: True To control blood pressure, lower the amount of sodium: I Don't Know If someone gets chest discomfort during walking: False Transfats are partially hydrogenated vegetable oils: I Don't Know Sleep apnea that is not treated increases the risk: True To control cholesterol, one should become a vegetarian: I Don't Know Someone knows if he/she is exercising at the right level: I Don't Know Diabetes cannot be prevented with exercise & health eating: I Don't Know Stress is a large risk for heart attack: I Don't Know A diet that can help lower blood pressure is rich in: True - Total Score Total Correct Responses: 10 Self-Efficacy Initial Assessment We would like to know how confident you are in doing certain activities. Please select your confidence level for:: Select your confidence level for the following using the scale 1-10 where 1 is not at all confident and 10 is totally confident. Your score is the average of all 6 responses. Fatigue: How confident are you that you can keep the fatigue caused by your disease from interfering with the things you want to do? Select Number: 7 Physical Discomfort or Pain: How confident are you that you can keep the physical discomfort or pain of your disease from interfering with the things you want to do? Select Number: 10 Emotional Distress: How confident are you that you can keep the emotional distress caused by your disease from interfering with the things you want to do? Select Number: 10 Other Symptoms or Health Problems: How confident are you that you can keep other symptoms or health problems from interfering with the things you want to do? Select Number: 9 Different Tasks and Activities: How confident are you that you can do the different tasks and activities needed to manage your health condition so as to reduce your need to see a doctor? Select Number: 8 Medication: How confident are you that you can do things other than just taking medication to reduce how much your illness affects your everyday life? Select Number: 9 Total Score:: 8 Nutrition Survey - Nutrition Survey Instructions Scoring Instructions: Scoring is as follows: Yes = 1 points. No = 0 point. Patient score that is >/=12 is considered to be at potential nutritional risk and could benefit from a referral to a registered dietitian. - Nutrition Survey Initial Have you lost >10 lbs over the past 2 months without trying?: No Are you following a special diet at home for diabetes, low fat, or low salt?: No Are you interested in meeting with a dietitian for help understanding your diet?: Yes Do you eat less than 3 meals a day?: Yes Do you eat fatty meats (peña, sausage, ribs, etc), fried foods, desserts, large amounts of salad dressings, margarine, butter, or cheese most days?: Yes Do you have food allergies? [Enter types in comment field]: No Do you eat in restaurants more than 3 times a week?: No Do you season food with salt, seasoning salt, or garlic salt?: No Do you used canned, boxed, frozen meals, or soups, seasoning packets?: Yes Total Score:: 4
--- NOTE | 2019-10-26 12:54 | PCM.CR.HP2 ---
CR - History & Physical - General Arrival date:: 10/26/19 Arrival time:: 12:50 Date of Referral:: 10/16/19 Date of CR Evaluation:: 10/26/19 Referring Physician: DR. Hebert Primary Diagnosis: CABG X2 - History of Present Cardiac Event Onset Date: Enter Onset Date of cardiac illnesses in Comment field below Current stable Angina Pectoris:: No Acute Myocardial Infarction within 12 months:: No Coronary Artery Bypass Graft:: Yes - CABG X2 Heart valve replacement or repair:: Yes PTCA or coronary stenting:: No Heart or Heart-Lung Transplant:: No Heart Failure EF <35%:: No Type of Symptoms:: TIRED ONLY Interventions with present event:: CAGB X2 Were there any complications?: 2 MINI STROKES SHOCKS 2-3 TIMES - Medications Home Medications: Ambulatory Orders Medication Instructions Recorded Aspirin [Aspirin, Baby] 81 mg PO DAILY@0800 tab.chew 06/21/19 Atorvastatin Calcium [Lipitor] 40 mg PO QHS #30 tab 06/21/19 Clopidogrel Bisulfate [Plavix] 75 mg PO DAILY #30 tab 06/21/19 acetaminophen 500 mg tablet 1,000 mg PO Q6H PRN tab 07/13/19 tramadol 50 mg tablet 50 mg PO Q8H PRN tab 07/13/19 trazodone 100 mg tablet 100 mg PO QHS PRN 07/13/19 metoprolol tartrate 25 mg tablet 25 mg PO BID #60 tab 08/28/19 Automatic Blood Pressure Cuff #1 ea 10/05/19 duloxetine 30 mg capsule,delayed 30 mg PO DAILY 10/15/19 release lisinopril 10 mg tablet 10 mg PO DAILY #30 tab 10/15/19 - Allergies Allergies/Adverse Reactions: Allergies No Known Allergies Allergy (Verified 10/25/19 13:46) - Sleep Disorder Evaluation Hx of Sleep Apnea: Yes Do you snore loudly (louder than talking or can be heard through closed doors)?: Yes - PT STATES SHE NEEDS TO BE TESTED AND IS BEING CONTACTED (DR CONTRERAS) ARRANGING Do you often feel tired/ fatigued/ sleepy during daytime?: Yes Has anyone observed you stop breathing during sleep?: Yes History of Hypertension (for STOP score): Yes - DR CONTRERAS IS ARRANGING FOR SLEEP EVAL FOR PT STOP Results: Positive Advanced Directives - Advanced Directives Power of [place]her [place]: No Living Will: No Advance Directives Information Provided: Yes - PT INFORMED OF MATERIAL AVAILABLE A THROUGH MEDICAL RECORDS Advance Directives on File: No DNR Order?:: No Past Medical History - Past Medical Illness Medical History: Past Medical History (Last Reviewed 10/25/19 @ 13:47 by Vanessa Cisneros) Atherosclerosis of coronary artery of [place] heart without angina pectoris (Chronic) I25.10 CVA (cerebral vascular accident) (Chronic) I63.9 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 Cardioembolic Cardiac arrest with ventricular fibrillation (Resolved) I46.9, I49.01 X3 immediately after CABG with defibrillation X 2 Ventricular tachycardia (paroxysmal) (Resolved) I47.2 Bilateral carotid artery stenosis (Chronic) I65.23 Left CEA 08/27/2013 Essential (primary) hypertension (Chronic) I10 Hyperlipidemia (Chronic) E78.5 Nicotine dependence (Chronic) F17.200 1 or > daily for 40-45 years Anxiety and depression F41.9, F32.9 BPPV (benign paroxysmal positional vertigo) H81.10 BPPV (benign paroxysmal positional vertigo) H81.10 COPD (chronic obstructive pulmonary disease) J44.9 Diverticulosis K57.90 History of DVT (deep vein thrombosis) Onset Date: 01/2013 Z86.718 LLE Migraine headache with aura G43.109 Obesity E66.9 Obesity (BMI 30-39.9) E66.9 Sleep-disordered breathing G47.30 COPD (chronic obstructive pulmonary disease) J44.9 Meningioma determined by biopsy of brain D32.0 Non-cardiac chest pain (Resolved) R07.89 - Past Surgical History Surgical History: Past Surgical History (Last Reviewed 10/25/19 @ 13:47 by Vanessa Cisneros) H/O coronary artery bypass surgery (Resolved) Onset Date: 06/07/19 Z95.1 CABG x 2 MARTINEZ-LAD and SVG-RCA History of bone graft Z98.890 to left foot History of cholecystectomy Z90.49 History of electrophysiologic study Onset Date: 10/03/19 Z98.890 failure to induce VTACH History of laminectomy Z98.890 History of left heart catheterization Onset Date: 02/03/20 Z98.890 History of left-sided carotid endarterectomy Onset Date: 08/27/13 Z98.890 Left carotid endarterectomy with bovine patch angioplasty. History of repair of rotator cuff Z98.890 History of resection of meningioma Onset Date: 2000 [id number] - Family History Summary Family History: Family History (Last Reviewed 10/25/19 @ 13:47 by Vanessa Cisneros) Mother Clotting disorder CAD (coronary artery disease) Hypertension Pulmonary embolism Father Hypertension Diabetes Social History - Smoking History Smoking Status: Current every day smoker Years Smokin Packs Smoked per Day: 1 - PT STATES 1-4 CIGARETTES PER STATES - Alcohol Use Alcohol Usage: No - Substance Abuse Hx Substance Use: No - Occupation Occupation (List type of work in comments):: Retired - Hobbies, Recreation, Social Activities Hobbies: Watch TV Recreational Activities: I can hardly do any recreational activities Social Environment - Status Marital Status: - Current Living Arrangements Living Environment:: Family - DAUGHTER LIVES WITH PT - Children How many children do you have?: 2 Do any of your children live nearby?: Yes - ONE DAUGHTER LIVES WITH PT - Safety Do you feel safe in your surroundings?: Yes - Assistance Do you need any assistance at home?: NONE Review of Systems - Review of Systems Hints: Right click = Denies ([place]). Left click = Reports ([place]) Review of Present Symptoms: Reports: Shortness of Breath with Exertion, PVD - HX OF PVD, Wound Healing - INCISION SITE CLEAN, DRY, EDGES WELL APPROXIMATED, PINK WITHOUT REDNESS OR DRAINAGE, Dizziness/Lightheadedness - OCCASIONAL DIZZINESS DUE TO HER TWO MINI STROKES, Fatigue - Pain Is Patient Pain Free?: Yes Risk Factor Assessment - Chief Complaint Chief Complaint: CURRENT CABG PT WHO PRESENTS TODAY FOR CR INITIAL EVAL - Vital Signs Temperature: 98.6 F Respiratory Rate: 24 Nailbeds:: WEARING RUSSIAN - Pulse Pulse Rhythm: Regular - Hypertension How long have you been treated?: APPROXIMATELY 30 YEARS On medication(s)?: METOPROLOL, LISINOPRIL Blood Pressure Sitting - Left Arm: 144/90 - Stress Stress: Recent - HAD CLOSE FRIEND WHO RECENTLY - Diabetes Nutrition Referral for Diabetes: No - Obesity Height: 5 ft 3 in Weight:: 215 lb Weight in Pounds: 215.0 lbs Weight Source: Stated by Patient Body Mass Index (BMI): 38.0 Nutritional Referral for Obesity: No - PT DENIES WANTING, STATES SHE'S HAD IT BEFORE - Physical Inactivity Physical Inactivity: None - PT STATES THAT SINCE THE COVID, SHE HAS BEEN AT HOME WITH LITTLE ACTIVITY - Risk Stratification Risk Guidelines: Lowest Risk: Risk Factor for Diabetes, Risk Factor for Depression, Moderate Risk: Risk Factor for Dyslipidemia - LIPID PROFILE NOT AVAILABLE BUT BEING TX FOR HLD, Risk Factor for Sedentary Lifestyle, Highest Risk: Risk Factor for Smoking, Risk Factor for Obesity - BMI OF 38.0, Risk Factor for Hypertension - HX OF HTN - For Smoking Smoking Risk Guidelines: Smoking Low Risk: None or quit greater than 6 months ago. Smoking Moderate Risk: Smoker or quit 6 months or less ago. Smoking High Risk: Smoker - For Dyslipidemia Dyslipidemia Risk Guidelines: Low Risk: Moderate Risk: High Risk: 15-25% fat 25.1-29% fat >/= 30% fat. <7% sat fat 7-9% sat fat >9% sat fat. <150 mg chol 150-299 mg chol >/= 300 mg chol. LDL <100 LDL 100-129 LDL >/= 130. Chol/HDL ratio <5.0 Chol/HDL ratio 5.0-6.0 Chol/HDL ratio >6.0. Triglycerides <100 Triglycerides 100-149 Triglycerides >/= 150 - For Diabetes Mellitus Diabetes Risk Guidelines: Diabetes Low Risk: HgA1c <6.5% and/or FBG <120. Diabetes Moderate Risk: HgA1c 6.6-7.9% and/or FBG 120-180. Diabetes High Risk: HgA1c >/= 8% and/or FBG >180 - For Obesity/Overweight Obesity/Overweight Risk Guidelines: Obesity Low Risk: BMI <25.0. Obesity Moderate Risk: BMI 25-29.9. Obesity High Risk: BMI >/= 30.0 - For Hypertension Hypertension Risk Guidelines: Hypertension Low Risk: Systolic <120 and Diastolic <80. Hypertension Moderate Risk: Systolic 120-139 and Diastolic 80-89. Hypertension High Risk: Systolic >/= 140 and Diastolic >/= 90 - For Sedentary Lifestyle Sedentary Lifestyle Risk Guidelines: Sedentary Lifestyle Low Risk: >/= 1,500 kcal/week. Sedentary Lifestyle Moderate Risk: 700-1,499 kcal/week. Sedentary Lifestyle High Risk: < 700 kcal/week - For Depression Depression Risk Guidelines: Depression Low Risk: Not clinically depressed. Depression Moderate Risk: Mildly depressed. Depression High Risk: Clinically depressed - Family History Family History: Family History (Last Reviewed 10/25/19 @ 13:47 by Vanessa Cisneros) Mother Clotting disorder CAD (coronary artery disease) Hypertension Pulmonary embolism Father Hypertension Diabetes Motivation - Motivation to Participate On a scale of 1 to 10, how prepared are you to commit to attending program?: 10 What do you see as barriers to successfully being able to complete the program?: DRIVING TO GET HERE What do you see as the benefits of succesfully completing the program? In other words, what do you hope to get out of participating in the program?: GETTING BACK TO NORMAL ENERGY Are there issues you are dealing with that will interfere with completing the program?: VISION CAN BE A PROBLEM SOMETIMES HAD A COUPLE MINI TREADWELL Do you have a spouse or signficant other, family or friends who will help support you to complete the program?: DAUGHTERS
[2019-10-26 13:51] VITALS: BP 144/90; RESP 24; TEMP 37; BMI 38.0
[2019-10-26 14:18] VITALS: BP 144/90; BMI 38.0
== END ==
PROVIDERS: PCP Family Medicine; Referring Provider Internal Medicine Cardiovascular Disease; Visit Provider Internal Medicine Cardiovascular Disease
DX: Z95.1 Presence of aortocoronary bypass graft (principal)

== ENCOUNTER 2019-10-29 13:16 | Outpatient (RCR) | payer OTHER, SELFPAY ==
[2019-10-25 09:47] VITALS: BMI 38.0
== END 2019-10-30 23:59 ==
LOC: CR 13:16
PROVIDERS: PCP Family Medicine; Referring Provider Internal Medicine Cardiovascular Disease; Visit Provider Internal Medicine Cardiovascular Disease
DX: I25.10 Atherosclerotic heart disease of native coronary artery without angina pectoris (principal)
CPT/HCPCS: 93798

== ENCOUNTER → 2019-11-05 13:33 | Outpatient (CLI) | payer OTHER, SELFPAY ==
[2019-10-25 09:47] VITALS: BMI 38.0
[2019-10-26 13:51] VITALS: BMI 38.0
[2019-10-26 14:18] VITALS: BMI 38.0
--- NOTE | 2019-11-05 13:33 | CT_ITS ---
STUDY: LOW DOSE CT LUNG CANCER SCREENING REASON FOR EXAM: Female, 64 years old. TOBACCO DEPENDENCY, 35+ YR SMOKER X 2 PPD, HTN, TA=199 RADIATION DOSAGE (If Supplied By Facility): CTDIvol = ( 4.02 ) mGy, DLP = ( 116.82 ) mGycm TECHNIQUE: No contrast was administered. Low dose technique was utilized (average mAS-38 and kVp 120). 1.25 mm axial source images with a slice interval of 1.25-mm were reconstructed in lung windows. 2.5 mm axial source images with a slice interval of 2.5-mm were reconstructed in lung windows. 5.0 mm axial source images with a slice interval of 5.0-mm were reconstructed in soft tissue windows. Nodule measured using lung windows on PACS and/or independent workstation with automated measurement of minimum and maximum diameter. Nodule measurement reported as average diameter rounded to the nearest whole number. Growth is defined as an increase ins size of greater than 1.5 mm. COMPARISON: Chest, May 30, 2019 NODULES: Nodule #: 1 Density: Solid Lung location: Left lower lobe: Pleural-based Location in series: Series Number: 2 Image: 144 Size - D1 x D2 mm: 6 x 5 mm: 6 mm average diameter Margin: Smooth Shape: Round Calcification: No Fat: No Temporal comparison: None Nodule #: 2 Density: Solid Lung location: Right lower lobe: Pleural-based Location in series: Series Number: 2 Image: 158 Size - D1 x D2 mm: 3 x 3 mm: 3 mm average diameter Margin: Smooth Shape: Rounded Calcification: No Fat: No Temporal comparison: None Total lung nodules (excluding granulomas): 2 Emphysema: No Endobronchial lesion: Not Aorta: There is atherosclerotic changes of the aorta without aneurysm. Coronary arteries: There is evidence of CABG procedure. Heart: Normal in size Pulmonary artery: Normal in size Mediastinal nodes: There is a 1.1 x 0.6 x 1.3 cm paratracheal lymph node. Other chest and abdominal findings: Degenerative changes of the thoracic spine. CT/Low Dose CT Lung Screening IMPRESSION: Lung-RADS category 2 - Continue annual screening with LDCT in 12 months. IMPORTANT NOTES FOR USE: ACR Lung-RADS Version 1.0 Assessment Categories Release Date: August 27, 2013 Category: Coded 0-4 bases on nodule(s) with highest degree of suspicion. Negative screen is defined as categories 1 and 2; a positive screen is defined as categories 3 and 4. Category 3 and 4A nodules that are unchanged on interval CT should be coded as category 2, and individuals returned to screening in 12 months. Category 4X: Category 3 or 4 nodules with additional imaging findings that increase the suspicion of lung cancer, such as spiculation, GGN that doubles in size in 1 year, enlarged lymph notes, etc. Category Modifiers: S (significant finding unrelated to lung cancer) and C (prior history of treated lung cancer) may be added to the 0-4 Lung-RADS Electronically Signed: Samuel Restrepo DO at 21:53 EDT Tel [phone], Service support ,
== END ==
PROVIDERS: PCP Family Medicine; Referring Provider Internal Medicine Critical Care Medicine; Visit Provider Internal Medicine Critical Care Medicine
DX: Z12.2 Encounter for screening for malignant neoplasm of respiratory organs (principal); F17.210 Nicotine dependence, cigarettes, uncomplicated
CPT/HCPCS: G0297

== ENCOUNTER → 2019-11-07 12:23 | Outpatient (CLI) | payer OTHER, SELFPAY ==
[2019-10-26 13:51] VITALS: BMI 38.0
[2019-10-26 14:18] VITALS: BMI 38.0
[2019-11-07 13:46] LABS: Anion Gap 5 (5-15); BUN 24 mg/dL (7-18); BUN/Creat Ratio 23.3 RATIO (10-20); Calcium,Total 9.3 mg/dL (8.5-10.1); Chloride 107 mmol/L (98-107); Creatinine, Serum 1.03 mg/dL (0.55-1.02); EST Glomerular Filtration Rate 58 mL/min (>60); Est Glom Filt Rate - Afr Amer 70 mL/min (>60); Glucose 88 mg/dL (74-106); Potassium 4.2 mmol/L (3.5-5.1); Sodium Level 137 mmol/L (136-145)
== END ==
PROVIDERS: PCP Family Medicine; Referring Provider Physician Assistant Medical; Visit Provider Physician Assistant Medical
DX: I25.10 Atherosclerotic heart disease of native coronary artery without angina pectoris (principal); I10 Essential (primary) hypertension
CPT/HCPCS: 36415; 80048

== ENCOUNTER → 2019-11-23 20:29 | Outpatient (CLI) | payer OTHER, SELFPAY ==
[2019-10-25 09:47] VITALS: BMI 38.0
[2019-10-26 13:51] VITALS: BMI 38.0
[2019-10-26 14:18] VITALS: BMI 38.0
== END ==
PROVIDERS: PCP Family Medicine; Referring Provider Internal Medicine Critical Care Medicine; Visit Provider Internal Medicine Critical Care Medicine
DX: G47.33 Obstructive sleep apnea (adult) (pediatric) (principal)
CPT/HCPCS: 95810

== ENCOUNTER → 2019-11-27 09:50 | Outpatient (CLI) | payer OTHER, SELFPAY ==
[2019-10-25 09:47] VITALS: BMI 38.0
[2019-10-26 13:51] VITALS: BMI 38.0
[2019-10-26 14:18] VITALS: BMI 38.0
--- NOTE | 2019-11-29 11:57 | PFT ---
INTRODUCTION: The patient is a 64-year-old female that presents for pulmonary function studies secondary to a diagnosis of shortness of breath. Respiratory therapy reports good patient effort. Bronchodilators were used during testing. INTERPRETATION: Forced expiration spirometry demonstrates no evidence of a large airways obstructive ventilatory defect. There was no significant response to aerosolized bronchodilators. Spirograms are of good quality and plateau normally. Body plethysmography was performed and reveals lung volumes to be within normal limits. Diffusing capacity by single breath CO is significantly reduced at 48% of predicted. IMPRESSION: Isolated moderate reduction in diffusing capacity, which could be related to an underlying pulmonary vascular disorder such as pulmonary hypertension. Clinical correlation is recommended.
== END ==
PROVIDERS: PCP Family Medicine; Referring Provider Internal Medicine Critical Care Medicine; Visit Provider Internal Medicine Critical Care Medicine
DX: R06.02 Shortness of breath (principal); F17.210 Nicotine dependence, cigarettes, uncomplicated
CPT/HCPCS: 94060; 94726; 94729

== ENCOUNTER → 2019-11-30 12:10 | Outpatient (CLI) | payer OTHER, SELFPAY ==
[2019-10-25 09:47] VITALS: BMI 38.0
[2019-10-26 13:51] VITALS: BMI 38.0
[2019-11-28 08:04] VITALS: BMI 37.8
[2019-11-30 14:18] VITALS: PULSE 60; PULSE 64; PULSE 66; PULSE 70; PULSE 74; PULSE 83; PULSE 84; PULSE 85; O2SAT 91; O2SAT 92; O2SAT 93; O2SAT 96
--- NOTE | 2019-12-01 08:56 | WT_ITS ---
PSN 6 Minute Walk Test - 6 Minute Walk Test 6 Minute Walk Test: 6 Minute Walk Test PSN:6-Minute Walk Test Start: 11/30/19 14:18 Freq: Status: Active Protocol: [id number] Document 11/30/19 14:18 [facility] (Rec: 11/30/19 14:22 [facility] [id number]) 6 Minute Walk Test Date Performed 11/30/19 Time Performed 12:00 Height 5 ft 4 in Weight: 214 lb Weight in Pounds 214.[address]: Chay Moreno Assistive device used: None Pre-test Oxygen Delivery Method Room Air Pulse Ox (%) 93 Pulse Rate (60-100 beats/min) 60 Dyspnea Nadia Scale (0-10) 1 1st minute Oxygen Delivery Method Room Air Pulse Ox (%) 96 Pulse Rate (60-100 beats/min) 66 Dyspnea Nadia Scale (0-10) 2 Number of Rests Taken 0 2nd minute Oxygen Delivery Method Room Air Pulse Ox (%) 93 Pulse Rate (60-100 beats/min) 70 Dyspnea Nadia Scale (0-10) 2 Number of Rests Taken 0 3rd minute Oxygen Delivery Method Room Air Pulse Ox (%) 92 Pulse Rate (60-100 beats/min) 74 Dyspnea Nadia Scale (0-10) 2 Number of Rests Taken 0 4th minute Oxygen Delivery Method Room Air Pulse Ox (%) 93 Pulse Rate (60-100 beats/min) 83 Dyspnea Nadia Scale (0-10) 3 Number of Rests Taken 0 Reported Symptoms Increased Work of Breathing 5th minute Oxygen Delivery Method Room Air Pulse Ox (%) 92 Pulse Rate (60-100 beats/min) 84 Dyspnea Nadia Scale (0-10) 3 Number of Rests Taken 0 Reported Symptoms Increased Work of Breathing 6th minute Oxygen Delivery Method Room Air Pulse Ox (%) 91 Pulse Rate (60-100 beats/min) 85 Dyspnea Nadia Scale (0-10) 3 Number of Rests Taken 0 Reported Symptoms Increased Work of Breathing Post-test Oxygen Delivery Method Room Air Pulse Ox (%) 93 Pulse Rate (60-100 beats/min) 64 Dyspnea Nadia Scale (0-10) 1 Full Laps Walked 19 Partial Lap, Number of Tiles Walked 136 Total Distance Walked (ft) 1257 - Interpretation Interpretation: The patient ambulated 1257 feet over the course of 6 minutes beginning on room air without assistive devices or breaks. Pretesting oxygen saturation was noted to be 93% on room air. With ambulation, the andres oxygen saturation was 91%. There was no significant exertional oxygen desaturation. - Recommendations Recommendations: There is no indication for the use of supplemental oxygen at this time.
== END ==
PROVIDERS: PCP Family Medicine; Referring Provider Internal Medicine Critical Care Medicine; Visit Provider Internal Medicine Critical Care Medicine
DX: R06.02 Shortness of breath (principal)
CPT/HCPCS: 94618

== ENCOUNTER 2019-11-30 13:00 | Outpatient (RCR) | payer OTHER, SELFPAY ==
[2019-10-26 13:51] VITALS: BMI 38.0
[2019-10-26 14:18] VITALS: BMI 38.0
--- NOTE | 2019-11-28 07:47 | PCM.CR.ITP ---
Diagnosis - General Information Personal Learning Style:: Written Stage of change r/t lifestyle modifications:: Action Gave educational material for:: Treating Heart Disease, Emotions & Heart Disease, Stress Management & Relaxation, Sleep Disorders & Heart Disease, How The Heart Works, What it means to have Heart Disease, How Coronary Artery Disease is Diagnosed, Heart Procedures, What Heart Medications Do, Risk Factors & Modifications, Living an Active Life, Nutrition - Education/Goals Cardiac Rehabilitation Goals: 1. Maintain the individual as the primary focus of care. 2. To improve the patient's quality of life. 3. Identification of cardiac risk factors and provide cardiac risk factor management. 4. Enhance the psychosocial status of the patient. 5. Reconditioning enough to allow the patient to resume customary activities. 6. Control symptoms of cardiac disease Scale for measuring improvement of personal goals: Enter appropriate number in Comments. 2 = Unchanged. 3 = Slightly Better. 4 = Moderate Improvement. 5 = Met my Goal - Diagnosis & Disease Process Outcomes/Goals: Pt IDs own risk factors & lifestyle modifications by Session 10, Verbalizes symptoms of angina & response by session 3., Pt independently manages Plan/Interventions: Assist Pt to ID & engage in lifestyle modification to reduce CVD risk, Instruct on individual risk factors, Review symptoms of angina & emergency actions, Review secondary diagnosis & identify educational needs. 30 day Reassessments:: Progressing Exercise - 30-day Assessment - Visit Date of Eliezer: 11/28/19 Session #:: 9 Comments:: Patient doing two days/week due to insurance co-pay. - Physician Prescribed Exercise Modalities: Treadmill, NuStep, SciFit Frequency: 3x/week for 12 weeks [36 sessions] Intensity: 60-80% of age predicted maximum heart rate reserve Current METSs:: 2.5 Target Heart Rate:: 102-133 Target RPE 12-16:: Current RPE:: 11-12 Maximum Excercise HR:: 88 Resting Blood Pressure: 128/80 Maximum Exercise Blood Pressure: 154/74 EKG Type: sinus rhythm with occasional PVCs - Outcomes & Goals Goals:: Verbalizes understanding of THR, RPE & goal METS by session 6, Documents in home exercise log/reports 30 min aerobic 5 day/wk by DC, Demonstrates accurate pulse taking by DC - Intervention & Plan Exercise Program Goals: Instruct on personal THR & RPE, Instruct on MET level & personal MET goal, Show patient to take own pulse /validate performance until accurate, Instruct on home exercise - 30-day Reassessments 30 day Reassessments:: Progressing - Physical Activity Home Exercise Physical Activity - Home Exercise: Safe Exercise, Warm-up, Self-monitoring, Cool-Down, Home Exercise > 30 min Daily, Sitting Time <3 hours/daily - Outcomes & Goals Outcomes/Goals: Demonstrates correct Warm-up/exercise Cool-Down (S3) if = 2.5 METs, Verbalizes symptoms of exercise intolerance by Session 3 (S3), Demonstrate safe equipment use (S3) & follows exercise prescrition (6) - Intervention & Plan Plan/Intervention: Instruct warm-up & cool-down if exercising at > 2 METs, Instruct on symptoms of exercise intolerance & actions to take, Instruct & monitor on saf, Assess intial functional capacity & safety risk - 30-day Reassessments 30 day Reassessments:: Progressing Nutrition - 30-Day Assessment - Program Goals Nutrition Program Goals: LDL <100 optimal. 100 - 129 Near optimal. 130 - 159 Borderline High. 160 - 189 High. Total Cholesterol <200 desirable. 200 - 239 Borderline High. >/= 240 High. HDL < 40 Low >/=60 High. Triglycerides <150 desirable. <199 optimal. VlDL 5 - 40. HgbA1C <7%. BMI <25 Patient has diagnosis of Hyperlipidemia (ICD E78)?: Yes - Visit Date of Assessment:: 11/28/19 Session #:: 9 - Cholesterol/Lipids Triglycerides (mg/dL): 0 - not available Determine presence & major risk factors that modify LDL goal: Hypertension or hypertensive medication, Low HDL cholesterol <40 mg/dL*, Family history of premature CHD in Male < 55 years: female <65 yearsFa, Age men > 45 years; women >/= 55 years Outcomes/Goals: Pt IDs own risk factors & lifestyle modifications by Session 10, Verbalizes symptoms of angina & response by session 3., Pt independently manages Intervention/Plan: Instruct on personal lipid levels & lipid goals/NCEP guidelines, Instruct on cholesterol Referral to dietitian:: Yes - Medical Nutrition Therapy 30-day Reassessments:: Progressing - Diabetes (Other Core Measures) Diabetes Type: Not Applicable - Weight Mgt (Other Care) Not Applicable: No Height: 5 ft 3 in - Weight:: 213 lb 8 oz BMI: 37.8 Diagnosis Overweight/Obesity BMI> 30% ICD-10 E66: Yes Diagnosis High BMI/Morbid Obesity BMI> 35% ICD-10 Z68: Yes Outcomes/Goals: Pt sets, maintains & shows weight loss goal & trend during rehab Intervention/Plan: Instruct on ideal BMI & set weight loss goal w/patient, Assist pt to ID & incorporate diet changes for weight loss by S9, Refer to Structured Weight Loss program as appropriate, Encourage goal of using 250-300dcal per session for weight loss 30 day Reassessments:: Progressing - Healthy Eating Habits Will attend diet classes:: Yes Outcomes/Goals:: Consume diet rich in vegs,fruits,whole grain/high fiber,fish,lean meat, Limit sat/trans fats,cholesterol & added salts & sugars Intervention/Plan:: Assess current eating habits 30-day Reassessments:: Progressing - Education Gave educational materials for:: Healthy eating Medical- 30-Day Assessment - Visit Date of Eval: 11/28/19 Session #:: 9 - Medication Compliance Preventative Medication(s):: Aspirin, Statin/lipid, Beta jonathan H/O mental health issues: depression, anxiety, or addiction?: No Doesn?t believe in the benefits of treatment?: No Believes medications are unnecessary or harmful?: No Has a concern about medication side effects?: No Expresses concern over the cost of medications?: No Outcomes/Goals: Verbalizes medications,desired effect & common side effects @ DC, Pt self-reports following medication regimen, Keeps card in wallet w/medications listed by DC Interventions/plans: Instruct on medication effects & side effects, Review medication list w/patient every two weeks, Instruct importance of taking meds as ordered & assist problem solving 30-day Reassessments:: Progressing - Tobacco Use Tobacco Use: Non-smoker - Hypertension Hypertension Diagnosis:: Hypertension ICD-10 I10 Resting Blood Pressure:: 128/80 [place] [employer] Hypertension Guidelines: [place] [employer] Hypertension Guidelines. Normal BP Less than 120/80. Elevated BP 120/80. Hypertension Stage 1: BP 130-139/80-89. Hypertesnion Stage 2: BP 140 or higher/90 or higher. Hypertension Crisis: BP higher than 180/120 Peak Exercise Blood Pressure:: 154/74 Outcomes/Goals: Able to verbalize/achieve optimal blood pressure <130/80, Incorporates diet changes & exercise for blood pressure control by DC Interventions/plan: Instruct on optimal blood pressure, hypertension & medications, Instruct on effects of sodium, alcohol, stress, exercise &hypertension 30 day Reassessments:: Progressing - Tobacco Cessation Referral Smoking Cessation Referral:: No Individual Education/Counseling:: No Education Schedule Given:: Yes Psychosocial - 30-Day Assess - VIsit Date of Eval: 11/28/19 Session #:: 9 Not Applicable: Yes History of previous Mental disease:: No - Target Goals Target Goals: Assess presence or absence of depression. Using a valid screening tool, maximizes coping skills. Positive support system - Psychosocial Test Tool Used:: Kristal Gale QOL Cardiac, PHQ-9 Questionnaire phq-9 Severity: Severity. 1-4 Minimal Depression. 5-9 Mild Depression. 10-14 Moderate Depression. 15-19 Moderately Sever Depression. 20-27 Severe Depression. Rule: - Referral to Behavioral Health PS - Interventions: Yes Attend Stress Management Classes, No Referral to Behavioral Health if PHQ-9 score >9:, No Referral to [facility], No Referral to Physician if PHQ-9 if score is 5-9: - Outcomes/Goals: See list Psychosocial Outcomes/Goals:: ID's personal stressors & 2 strategies to manage stress by discharge - Intervention/Plan: See List Interventions/Plan:: Assess stressors,coping strategies & signs of derpression on admission, Instruct/assist pt to develop coping & personal stress Mgt strategies, Instruct patient to recognize signs & symptoms of depression, Instruct patient to recog - 30-day Reassessments: 30 day Reassessments:: Progressing Patient Health Questionnaire 30-Day Re-eval Assessment 1. Little interest or pleasure in doing things: Not at all 2. Feeling down, depressed, or hopeless: Not at all 3. Trouble falling or staying asleep, or sleeping too much: Not at all 4. Feeling tired or having little energy: Not at all 5. Poor appetite or overeating: Several days 6. Feeling bad about yourself -- or that you are a failure or have let yourself or your family down: Not at all 7. Trouble concentrating on things, such as reading the newspaper or watching television: Several days 8. Moving or speaking so slowly that other people could have noticed. Or the opposite - being so fidgety or restless that you have been moving around a lot more than usual: Not at all 9. Thoughts that you would be better off , or of hurting yourself in some way: Not at all How difficult have these problems made it for you to do your work, take care of things at home, or get along with other people?: Not difficult at all Total Score: 2 Self-Efficacy 30-Day Re-eval Assessment We would like to know how confident you are in doing certain activities. Please select your confidence level for:: Select your confidence level for the following using the scale 1-10 where 1 is not at all confident and 10 is totally confident. Your score is the average of all 6 responses. Fatigue: How confident are you that you can keep the fatigue caused by your disease from interfering with the things you want to do? Select Number: 8 Physical Discomfort or Pain: How confident are you that you can keep the physical discomfort or pain of your disease from interfering with the things you want to do? Select Number: 10 Emotional Distress: How confident are you that you can keep the emotional distress caused by your disease from interfering with the things you want to do? Select Number: 10 Other Symptoms or Health Problems: How confident are you that you can keep other symptoms or health problems from interfering with the things you want to do? Select Number: 9 Different Tasks and Activities: How confident are you that you can do the different tasks and activities needed to manage your health condition so as to reduce your need to see a doctor? Select Number: 10 Medication: How confident are you that you can do things other than just taking medication to reduce how much your illness affects your everyday life? Select Number: 9 Total Score:: 9
[2019-11-28 08:04] VITALS: BP 128/80; BP 154/74; BMI 37.8
== END 2019-11-30 23:59 ==
LOC: CR 13:00
PROVIDERS: PCP Family Medicine; Referring Provider Internal Medicine Cardiovascular Disease; Visit Provider Internal Medicine Cardiovascular Disease
DX: I25.10 Atherosclerotic heart disease of native coronary artery without angina pectoris (principal)
CPT/HCPCS: 93798

== ENCOUNTER 2019-12-31 13:00 | Outpatient (RCR) | payer OTHER, SELFPAY ==
[2019-10-26 13:51] VITALS: BMI 38.0
[2019-11-28 08:04] VITALS: BMI 37.8
[2019-12-01 00:37] VITALS: BP 128/80; BP 154/74
--- NOTE | 2019-12-27 07:23 | PCM.CR.ITP ---
Exercise - 60-day Assessment - Visit Date of Eval: 12/27/19 Session #:: 16 - delayed 14 days precaution suspected exposure to COVID positive family member. - Physician Prescribed Exercise Modalities: Treadmill, NuStep, SciFit Frequency: 2x/week for 18 weeks [36 sessions] Intensity: 60-80% of age predicted maximum heart rate reserve Current METSs:: 2.5 unchanged Target Heart Rate:: 102-133 Current RPE:: 11-13 Maximum Excercise HR:: 95 Resting Blood Pressure: 112/60 - controlled w/medication Maximum Exercise Blood Pressure: 132/68 EKG Type: NSR with isolated PACs. - Outcomes & Goals Goals:: Verbalizes understanding of THR, RPE & goal METS by session 6, Documents in home exercise log/reports 30 min aerobic 5 day/wk by DC, Demonstrates accurate pulse taking by DC - Intervention & Plan Exercise Program Goals: Instruct on personal THR & RPE, Instruct on MET level & personal MET goal, Show patient to take own pulse /validate performance until accurate, Instruct on home exercise - 30-day Reassessments 30 day Reassessments:: Progressing - Physical Activity Home Exercise Physical Activity - Home Exercise: Safe Exercise, Warm-up, Self-monitoring, Cool-Down, Home Exercise > 30 min Daily, Sitting Time <3 hours/daily - Outcomes & Goals Outcomes/Goals: Demonstrates correct Warm-up/exercise Cool-Down (S3) if = 2.5 METs, Verbalizes symptoms of exercise intolerance by Session 3 (S3), Demonstrate safe equipment use (S3) & follows exercise prescrition (6) - Intervention & Plan Plan/Intervention: Instruct warm-up & cool-down if exercising at > 2 METs, Instruct on symptoms of exercise intolerance & actions to take, Instruct & monitor on saf, Assess intial functional capacity & safety risk - 30-day Reassessments 30 day Reassessments:: Progressing Nutrition - 60-Day Assessment - Program Goals Nutrition Program Goals: LDL <100 optimal. 100 - 129 Near optimal. 130 - 159 Borderline High. 160 - 189 High. Total Cholesterol <200 desirable. 200 - 239 Borderline High. >/= 240 High. HDL < 40 Low >/=60 High. Triglycerides <150 desirable. <199 optimal. VlDL 5 - 40. HgbA1C <7%. BMI <25 Patient has diagnosis of Hyperlipidemia (ICD E78)?: Yes - Visit Date of Assessment:: 12/27/19 Session #:: 16 - Cholesterol/Lipids Determine presence & major risk factors that modify LDL goal: Cigarette smoking, Hypertension or hypertensive medication, Age men > 45 years; women >/= 55 years Outcomes/Goals: Pt IDs own risk factors & lifestyle modifications by Session 10, Verbalizes symptoms of angina & response by session 3., Pt independently manages Intervention/Plan: Instruct on personal lipid levels & lipid goals/NCEP guidelines, Instruct on cholesterol Referral to dietitian:: Yes 30-day Reassessments:: Progressing - Diabetes (Other Core Measures) Diabetes Type: Not Applicable - Weight Mgt (Other Care) Not Applicable: No Height: 5 ft 3 in Weight:: 213 lb BMI: 37.7 Diagnosis Overweight/Obesity BMI> 30% ICD-10 E66: Yes Diagnosis High BMI/Morbid Obesity BMI> 35% ICD-10 Z68: Yes Outcomes/Goals: Pt sets, maintains & shows weight loss goal & trend during rehab Intervention/Plan: Instruct on ideal BMI & set weight loss goal w/patient, Assist pt to ID & incorporate diet changes for weight loss by S9, Refer to Structured Weight Loss program as appropriate, Encourage goal of using 250-300dcal per session for weight loss 30 day Reassessments:: Progressing - Healthy Eating Habits Will attend diet classes:: Yes Outcomes/Goals:: Consume diet rich in vegs,fruits,whole grain/high fiber,fish,lean meat, Limit sat/trans fats,cholesterol & added salts & sugars Intervention/Plan:: Assess current eating habits 30-day Reassessments:: Progressing - Education Gave educational materials for:: Healthy eating Medical- 60-Day Assessment - Visit Date of Eval: 12/27/19 - Medication Compliance Preventative Medication(s):: Aspirin, RANDOLPH inhibitor, Statin/lipid, Beta jonathan H/O mental health issues: depression, anxiety, or addiction?: No Doesn?t believe in the benefits of treatment?: No Believes medications are unnecessary or harmful?: No Has a concern about medication side effects?: No Expresses concern over the cost of medications?: Yes - co-pay with insurance Outcomes/Goals: Verbalizes medications,desired effect & common side effects @ DC, Pt self-reports following medication regimen, Keeps card in wallet w/medications listed by DC Interventions/plans: Instruct on medication effects & side effects, Review medication list w/patient every two weeks, Instruct importance of taking meds as ordered & assist problem solving 30-day Reassessments:: Progressing - Tobacco Use Tobacco Use: Cigarettes How many cigarettes do you smoke per day?: 15 Do you use smokeless tobacco?: No Outcomes/Goals: Smoking cessation achieved or maintained by discharge, Identify aids/strategies for achieving smoking cessation by session 6 Interventions/plan: Instruct on effects of smoking & provide smoking cessation resource, Assist pt to set quit date & provide encouragement, Assist pt to develop strategies to achieve/maintain quit date, Assist pt w/nicotine replacement & medication for cessation success 30-day Reassessments:: Met - Hypertension Hypertension Diagnosis:: Hypertension ICD-10 I10 Resting Blood Pressure:: 112/60 - controlled w/medication [place] [employer] Hypertension Guidelines: [place] [employer] Hypertension Guidelines. Normal BP Less than 120/80. Elevated BP 120/80. Hypertension Stage 1: BP 130-139/80-89. Hypertesnion Stage 2: BP 140 or higher/90 or higher. Hypertension Crisis: BP higher than 180/120 Peak Exercise Blood Pressure:: 132/68 Outcomes/Goals: Able to verbalize/achieve optimal blood pressure <130/80, Incorporates diet changes & exercise for blood pressure control by DC Interventions/plan: Instruct on optimal blood pressure, hypertension & medications, Instruct on effects of sodium, alcohol, stress, exercise &hypertension 30 day Reassessments:: Progressing - Tobacco Cessation Referral Smoking Cessation Referral:: Yes Individual Education/Counseling:: No Education Schedule Given:: Yes Psychosocial - 60-Day Assess - VIsit Date of Eval: 12/27/19 Session #:: 16 Not Applicable: No History of previous Mental disease:: No History of Emotional Disorders: Anxious, Depression Self-reported stressors: Financial, Medical/Health, Recent Illness - Target Goals Target Goals: Assess presence or absence of depression. Using a valid screening tool, maximizes coping skills. Positive support system - Psychosocial Test Tool Used:: Kristal Gale QOL Cardiac, PHQ-9 Questionnaire phq-9 Severity: Severity. 1-4 Minimal Depression. 5-9 Mild Depression. 10-14 Moderate Depression. 15-19 Moderately Sever Depression. 20-27 Severe Depression. Rule: - Referral to Behavioral Health PS - Interventions: Yes Referral to Physician if PHQ-9 if score is 5-9:, Yes Attend Stress Management Classes, No Referral to Behavioral Health if PHQ-9 score >9:, No Referral to [facility] - Outcomes/Goals: See list Psychosocial Outcomes/Goals:: ID's personal stressors & 2 strategies to manage stress by discharge - Intervention/Plan: See List Interventions/Plan:: Assess stressors,coping strategies & signs of derpression on admission, Instruct/assist pt to develop coping & personal stress Mgt strategies, Refer to Physician if appropriate, Instruct patient to recognize signs & symptoms of depression, Instruct patient to recog - 30-day Reassessments: 30 day Reassessments:: Progressing Patient Health Questionnaire 60-Day Re-eval Assessment 1. Little interest or pleasure in doing things: Not at all 2. Feeling down, depressed, or hopeless: Not at all 3. Trouble falling or staying asleep, or sleeping too much: Several days 4. Feeling tired or having little energy: Several days 5. Poor appetite or overeating: Several days 6. Feeling bad about yourself -- or that you are a failure or have let yourself or your family down: Not at all 7. Trouble concentrating on things, such as reading the newspaper or watching television: Several days 8. Moving or speaking so slowly that other people could have noticed. Or the opposite - being so fidgety or restless that you have been moving around a lot more than usual: Not at all 9. Thoughts that you would be better off , or of hurting yourself in some way: Not at all How difficult have these problems made it for you to do your work, take care of things at home, or get along with other people?: Somewhat difficult Total Score: 4 Self-Efficacy 60-Day Re-eval Assessment We would like to know how confident you are in doing certain activities. Please select your confidence level for:: Select your confidence level for the following using the scale 1-10 where 1 is not at all confident and 10 is totally confident. Your score is the average of all 6 responses. Fatigue: How confident are you that you can keep the fatigue caused by your disease from interfering with the things you want to do? Select Number: 9 Physical Discomfort or Pain: How confident are you that you can keep the physical discomfort or pain of your disease from interfering with the things you want to do? Select Number: 9 Emotional Distress: How confident are you that you can keep the emotional distress caused by your disease from interfering with the things you want to do? Select Number: 9 Other Symptoms or Health Problems: How confident are you that you can keep other symptoms or health problems from interfering with the things you want to do? Select Number: 9 Different Tasks and Activities: How confident are you that you can do the different tasks and activities needed to manage your health condition so as to reduce your need to see a doctor? Select Number: 9 Medication: How confident are you that you can do things other than just taking medication to reduce how much your illness affects your everyday life? Select Number: 9 Total Score:: 9
[2019-12-27 07:31] VITALS: BP 112/60; BP 132/68; BMI 37.7
== END 2019-12-31 23:59 ==
LOC: CR 13:00
PROVIDERS: PCP Family Medicine; Referring Provider Internal Medicine Cardiovascular Disease; Visit Provider Internal Medicine Cardiovascular Disease
DX: I25.10 Atherosclerotic heart disease of native coronary artery without angina pectoris (principal)
CPT/HCPCS: 93798

== ENCOUNTER 2020-01-02 07:14 | Outpatient (RCR) | payer OTHER, SELFPAY ==
[2019-12-19 12:55] VITALS: BMI 37.6
[2019-12-27 07:31] VITALS: BMI 37.7
[2020-01-01 00:38] VITALS: BP 112/60; BP 132/68
== END 2020-01-30 23:59 ==
LOC: CR 07:14
PROVIDERS: PCP Family Medicine; Referring Provider Internal Medicine Cardiovascular Disease; Visit Provider Internal Medicine Cardiovascular Disease
DX: I25.10 Atherosclerotic heart disease of native coronary artery without angina pectoris (principal)
CPT/HCPCS: 93798

== ENCOUNTER → 2020-05-07 17:34 | Outpatient (CLI) | payer OTHER, SELFPAY ==
[2019-12-27 07:31] VITALS: BMI 37.7
[2020-01-28 14:00] VITALS: BMI 37.7
== END ==
PROVIDERS: PCP Family Medicine; Referring Provider Nurse Practitioner Acute Care; Visit Provider Nurse Practitioner Acute Care
DX: R09.81 Nasal congestion (principal)
CPT/HCPCS: 87635; C9803; U0005; U0003

== ENCOUNTER 2020-07-10 09:31 | Outpatient (RCR) | payer OTHER, SELFPAY ==
[2019-12-27 07:31] VITALS: BMI 37.7
[2020-01-28 14:00] VITALS: BMI 37.7
[2020-07-10] MEDS: COVID-19 VACC, MRNA(PFIZER)/PF 30 MCG/0.3 ML SYRINGE IM (13:20)
[2020-07-31] MEDS: COVID-19 VACC, MRNA(PFIZER)/PF 30 MCG/0.3 ML SYRINGE IM (12:48)
== END 2020-07-10 23:59 ==
LOC: IMMUN 09:31
PROVIDERS: PCP Family Medicine; Visit Provider Family Medicine
DX: Z23 Encounter for immunization (principal)
CPT/HCPCS: 0001A; 0002A; 91300

== ENCOUNTER → 2020-10-15 14:57 | Outpatient (CLI) | payer OTHER, SELFPAY ==
[2019-12-27 07:31] VITALS: BMI 37.7
[2020-10-08 14:28] VITALS: BMI 36.8
--- NOTE | 2020-10-15 15:01 | CT_ITS ---
STUDY: LOW DOSE CT LUNG CANCER SCREENING REASON FOR EXAM: Female, 65 years old. Current smoker. 30 pack-year history. RADIATION DOSAGE (If Supplied By Facility): CTDIvol = ( 4.02 ) mGy, DLP = ( 109.28 ) mGycm TECHNIQUE: No contrast was administered. Low dose technique was utilized (average mAS-38 and kVp 120). 1.25 mm axial source images with a slice interval of 1.25-mm were reconstructed in lung windows. 2.5 mm axial source images with a slice interval of 2.5-mm were reconstructed in lung windows. 5.0 mm axial source images with a slice interval of 5.0-mm were reconstructed in soft tissue windows. Nodule measured using lung windows on PACS and/or independent workstation with automated measurement of minimum and maximum diameter. Nodule measurement reported as average diameter rounded to the nearest whole number. Growth is defined as an increase ins size of greater than 1.5 mm. COMPARISON: 11/05/2019. NODULES: Nodule #: 1 Density: Lung location: Left lower lobe: Pleural based Location in series: Series Number: 2 Image: 136 Size - D1 x D2 mm: 6 x 3 mm: 4 mm average diameter Margin: Smooth Shape: Oval Calcification: No Fat: No Temporal comparison: Stable Nodule #: 2 Density: Lung location: Right lower lobe: Pleural-based Location in series: Series Number: 2 Image: 155 Size - D1 x D2 mm: 3 x 3 mm: 3 mm average diameter Margin: Smooth Shape: Round Calcification: No Fat: No Temporal comparison: Stable Total lung nodules (excluding granulomas): 2 Emphysema: No Endobronchial lesion: No Aorta: Normal Coronary arteries: Evidence of CABG. Heart: Normal Pulmonary artery: Normal Mediastinal nodes: Stable paratracheal lymph node. Other chest and abdominal findings: Degenerative change lumbar spine. CT/Low Dose CT Lung Screening IMPRESSION: No change from prior study. Lung-RADS category 2 - Continue annual screening with LDCT in 12 months. IMPORTANT NOTES FOR USE: ACR Lung-RADS Version 1.1 Assessment Categories Release Date: 2018 Category: Coded 0-4 bases on nodule(s) with highest degree of suspicion. Negative screen is defined as categories 1 and 2; a positive screen is defined as categories 3 and 4. Category 3 and 4A nodules that are unchanged on interval CT should be coded as category 2, and individuals returned to screening in 12 months. Category 4X: Category 3 or 4 nodules with additional imaging findings that increase the suspicion of lung cancer, such as spiculation, GGN that doubles in size in 1 year, enlarged lymph notes, etc. Category Modifiers: S (significant finding unrelated to lung cancer) Electronically Signed: Samuel Restrepo DO at 23:00 EDT Tel [phone], Service support ,
== END ==
PROVIDERS: Referring Provider Internal Medicine Critical Care Medicine; Visit Provider Internal Medicine Critical Care Medicine
DX: Z12.2 Encounter for screening for malignant neoplasm of respiratory organs (principal); F17.200 Nicotine dependence, unspecified, uncomplicated
CPT/HCPCS: 71271

== ENCOUNTER → 2020-10-28 13:00 | Outpatient (CLI) | payer OTHER, SELFPAY ==
[2019-12-27 07:31] VITALS: BMI 37.7
[2020-10-08 08:22] VITALS: BMI 36.8
== END ==
PROVIDERS: Referring Provider Internal Medicine Critical Care Medicine; Visit Provider Internal Medicine Critical Care Medicine
DX: G47.33 Obstructive sleep apnea (adult) (pediatric) (principal)
CPT/HCPCS: 98960; G0463

== ENCOUNTER → 2022-01-07 | Outpatient (CLI) | payer MEDICARE, SELFPAY ==
[2019-12-27 07:31] VITALS: BMI 37.7
[2022-01-07 16:51] LABS: AST(SGOT) 24 U/L (15-37); Alanine Aminotransfer ALT/SGPT 59 U/L (13-56); Albumin, Serum 3.7 g/dL (3.2-5.0); Alkaline Phosphatase 76 U/L (45-117); Anion Gap 6 (5-15); BUN 44 mg/dL (7-18); Bilirubin, Direct < 0.05 mg/dL (0.00-0.30); Calcium,Total 9.8 mg/dL (8.5-10.1); Chloride 102 mmol/L (98-107); Cholesterol 187 mg/dL (200); Creatinine, Serum 1.69 mg/dL (0.55-1.02); EST Glomerular Filtration Rate 32 mL/min (>60); Est Glom Filt Rate - Afr Amer 39 mL/min (>60); Globulin 4.2 g/dL (2.2-4.2); Glucose 104 mg/dL (74-106); High Density Lipoprotein 54 mg/dL; Protein, Total 7.9 g/dL (6.4-8.2); Sodium Level 138 mmol/L (136-145); Triglycerides 202 mg/dL; Very Low Density Lipoprotein 40 mg/dL (5-40)
== END | disposition home or self-care (01) ==
LOC: LAB 15:26
PROVIDERS: PCP Family Medicine; Referring Provider Internal Medicine Cardiovascular Disease; Visit Provider Internal Medicine Cardiovascular Disease
DX: E78.5 Hyperlipidemia, unspecified (principal); Z95.1 Presence of aortocoronary bypass graft; I65.23 Occlusion and stenosis of bilateral carotid arteries; I10 Essential (primary) hypertension
CPT/HCPCS: 36415; 80048; 80061; 80076

== ENCOUNTER → 2023-03-22 | Outpatient (CLI) | payer MEDICARE, SELFPAY ==
[2019-12-27 07:31] VITALS: BMI 37.7
--- NOTE | 2023-03-22 17:49 | STRESSREP ---
Stress Test Report Pharmacologic myocardial perfusion stress test. 67-year-old lady with a history of coronary artery disease Resting EKG demonstrates sinus rhythm with a rate of 64 bpm. Resting blood pressure is 108/76 mmHg. 0.4 mg of regadenoson was infused per usual protocol followed by rapid intravenous saline flush injection. Continuous EKG monitoring was performed. The maximum heart rate was 107 bpm which was 69% of max impacted heart rate the maximum workload was 1 metabolic equivalent. At rest there were no ST or T wave changes noted to suggest ischemia and at peak infusion nonspecific ST changes were noted which did not meet the criteria for ischemia. No clinical angina is noted. The final blood pressure was 104/70 mmHg. Myocardial perfusion protocol. 14.2 mCi of technetium 99m sestamibi was injected at rest. 0.4 mg of regadenoson was infused per usual protocol. At peak infusion 44.3 mCi of technetium 99m sestamibi was injected stress images were obtained stress and rest images were reconstructed and compared in the short axis vertical long and horizontal long axis. Gated images were also obtained. Perfusion SPECT analysis: Review of the stress images demonstrate normal uptake of tracer noted in all areas of the myocardium. The resting images similar demonstrated normal uptake of tracer noted in all areas of the myocardium. No areas of reversibility are noted to suggest ischemia and no previous infarct is noted. Gated SPECT analysis: The gated ejection fraction is 87%. Conclusion: Normal pharmacologic myocardial perfusion stress test. Preserved ejection fraction.
== END | disposition home or self-care (01) ==
PROVIDERS: PCP Family Medicine; Referring Provider Physician Assistant Medical; Visit Provider Physician Assistant Medical
DX: I25.10 Atherosclerotic heart disease of native coronary artery without angina pectoris (principal); Z95.1 Presence of aortocoronary bypass graft
CPT/HCPCS: 78452; 93017; A9500; A4216; J2785